=== PATIENT | female | born 1945 | race Caucasian/White ===

== ENCOUNTER → 2019-08-05 10:18 | Outpatient (BNVA) | payer MEDICARE, OTHER, SELFPAY | PROVIDERS: Family Provider Nurse Practitioner; PCP Nurse Practitioner; Visit Provider Nurse Practitioner | DX: I10 Essential (primary) hypertension (principal); D50.9 Iron deficiency anemia, unspecified; E55.9 Vitamin D deficiency, unspecified | CPT/HCPCS: 80053; 81003; 82306; 83540; 85025 ==

== ENCOUNTER → 2020-02-04 08:21 | Outpatient (BNVA) | payer MEDICARE, OTHER, SELFPAY | PROVIDERS: Family Provider Nurse Practitioner; PCP Nurse Practitioner; Visit Provider Nurse Practitioner | DX: E61.1 Iron deficiency (principal); E78.2 Mixed hyperlipidemia; E53.8 Deficiency of other specified B group vitamins; I10 Essential (primary) hypertension; E55.9 Vitamin D deficiency, unspecified | CPT/HCPCS: 80053; 80061; 81000; 82607; 83540; 85025 ==

== ENCOUNTER → 2020-02-06 09:01 | Outpatient (BNVA) | payer MEDICARE, OTHER, SELFPAY | PROVIDERS: Family Provider Nurse Practitioner; PCP Nurse Practitioner; Visit Provider Nurse Practitioner | DX: R30.0 Dysuria (principal); J44.9 Chronic obstructive pulmonary disease, unspecified; I10 Essential (primary) hypertension | CPT/HCPCS: 81000 ==

== ENCOUNTER → 2020-08-18 08:59 | Outpatient (BNVA) | payer MEDICARE, OTHER, SELFPAY | PROVIDERS: Family Provider Nurse Practitioner; PCP Nurse Practitioner; Visit Provider Nurse Practitioner | DX: E78.2 Mixed hyperlipidemia (principal); J44.9 Chronic obstructive pulmonary disease, unspecified; I10 Essential (primary) hypertension | CPT/HCPCS: 80053; 80061; 84443 ==

== ENCOUNTER → 2021-02-04 08:44 | Outpatient (BNVA) | payer MEDICARE, OTHER, SELFPAY | PROVIDERS: Family Provider Nurse Practitioner; PCP Nurse Practitioner; Visit Provider Nurse Practitioner | DX: E55.9 Vitamin D deficiency, unspecified (principal); E53.8 Deficiency of other specified B group vitamins; E78.2 Mixed hyperlipidemia; I10 Essential (primary) hypertension | CPT/HCPCS: 80053; 80061; 82306; 82607 ==

== ENCOUNTER → 2021-08-19 08:55 | Outpatient (BNVA) | payer MEDICARE, OTHER, SELFPAY | PROVIDERS: Family Provider Nurse Practitioner; PCP Nurse Practitioner; Visit Provider Nurse Practitioner | DX: E61.1 Iron deficiency (principal); I10 Essential (primary) hypertension; J44.9 Chronic obstructive pulmonary disease, unspecified | CPT/HCPCS: 80053; 80061; 84443; 85025 ==

== ENCOUNTER → 2022-01-25 14:46 | Outpatient (BNVA) | payer MEDICARE, OTHER, SELFPAY | PROVIDERS: Family Provider Nurse Practitioner; PCP Nurse Practitioner; Visit Provider Nurse Practitioner Family | DX: L02.419 Cutaneous abscess of limb, unspecified (principal); L72.0 Epidermal cyst; L08.9 Local infection of the skin and subcutaneous tissue, unspecified | CPT/HCPCS: 87070 ==

== ENCOUNTER → 2022-02-10 08:17 | Outpatient (BNVA) | payer MEDICARE, OTHER, SELFPAY | PROVIDERS: Family Provider Nurse Practitioner; PCP Nurse Practitioner; Visit Provider Nurse Practitioner | DX: I10 Essential (primary) hypertension (principal); E53.8 Deficiency of other specified B group vitamins | CPT/HCPCS: 80053; 80061; 82607; 85025 ==

== ENCOUNTER → 2022-08-04 08:03 | Outpatient (BNVA) | payer MEDICARE, OTHER, SELFPAY | PROVIDERS: Family Provider Nurse Practitioner; PCP Nurse Practitioner; Visit Provider Nurse Practitioner | DX: E53.8 Deficiency of other specified B group vitamins (principal); E55.9 Vitamin D deficiency, unspecified; E61.1 Iron deficiency; I10 Essential (primary) hypertension; Z79.899 Other long term (current) drug therapy | CPT/HCPCS: 80053; 80061; 81003; 82306; 82607; 83540; 84443; 85025; 87086 ==

== ENCOUNTER 2022-08-30 14:32 | Outpatient (CLI) | payer MEDICARE, OTHER, SELFPAY ==
[2022-08-30] MEDS: iohexol 350 mg/mL 500 mL Btl (per mL) PO (15:46)
--- NOTE | 2022-08-30 16:00 | CT_ITS ---
WS: [id number] CT CHEST, ABDOMEN AND PELVIS WITH CONTRAST. HISTORY: J44.9 - Chronic obstructive pulmonary disease, unspecified, vaginal bleeding for several mon ths. TECHNIQUE: Contiguous 5 mm axial imaging performed through the chest, abdomen and pelvis with IV cont rast, oral contrast has been provided. Coronal and sagittal reformats chest. Coronal and sagittal ref ormats through the abdomen and pelvis. All CT scans at [facility] use at least one of these d ose optimization techniques: automated exposure control; mA and/or kV adjustment per patient size (in cludes targeted exams where dose is matched to clinical indication); or iterative reconstruction. CONTRAST: Omnipaque 350; 100 mL IV. DLP: 806.33 mGy.cm COMPARISON: 04/11/2019 and 10/09/[address]: Moderate hyperexpansion and chronic emphysema. Interstitial thickening. Mild tree-in-bud ai rspace disease anterior RIGHT upper lobe. No mass or nodule. There are a few scattered micronodules. No pleural or pericardial effusion. Normal heart size. No adenopathy. Mild atherosclerosis aorta. Lar ge hiatal hernia. Mild anterior wedging of T10. Abdomen CT: Low-attenuation 5 mm focus in the RIGHT lobe of the liver. 2 small to characterize but li ebonie a cyst. No solid mass. Contracted gallbladder. No bile duct dilatation. Normal pancreas. Normal spleen. 3.2 cm RIGHT adrenal mass similar to the prior study from 10/09/2018. Small low-attenuation le kirit measuring 1.0 cm and the LEFT adrenal gland. Mild atherosclerosis aorta. Kidneys remain normal size. RIGHT renal cysts, largest measures 2.7 cm and is unchanged. Normally distended stomach. No small bowel obstruction. Marked diffuse constipation and fecal retenti on. Normal appendix. No ascites or adenopathy. Pelvic CT: Well-distended urinary bladder. Bladder wall thickening and nodularity in several regions highly suspicious for bladder neoplasm. Most concerning bladder wall lesions are on the RIGHT in the lateral and more anterior superior aspect of the bladder measuring up to 6 mm. Additional more subtle areas of nodularity and thickening on the LEFT. No ascites or adenopathy. Atrophic uterus. CT/CT chest abdpel w/*[id number] IMPRESSION: 1. Bladder wall lesions with mild enhancement. The most significant measures u p to 6 mm in the RIGHT lateral bladder wall. Highly suspicious for uroepithelia l lesions. Recommend follow-up with urology for cystoscopy. 2. Large hiatal hernia. 3. Moderate emphysema. 4. RIGHT adrenal mass is stable since 2019. Most consistent with a benign jose isaiah. 5. RIGHT renal cysts.
[2022-08-30] MEDS: iohexol 350 mg/mL 500 mL Btl (per mL) IV (16:14)
== END 2022-08-30 14:33 | disposition home or self-care (01) ==
LOC: RAD 14:37
PROVIDERS: Family Provider Nurse Practitioner; PCP Nurse Practitioner; Visit Provider Nurse Practitioner
DX: J44.9 Chronic obstructive pulmonary disease, unspecified (principal); K44.9 Diaphragmatic hernia without obstruction or gangrene; N28.1 Cyst of kidney, acquired; I70.0 Atherosclerosis of aorta
CPT/HCPCS: 71260; 74177; 74178; Q9967

== ENCOUNTER → 2023-02-09 11:15 | Outpatient (BNVA) | payer MEDICARE, OTHER, SELFPAY | PROVIDERS: Family Provider Nurse Practitioner; PCP Nurse Practitioner; Visit Provider Nurse Practitioner | DX: E61.1 Iron deficiency (principal); E53.8 Deficiency of other specified B group vitamins; E55.9 Vitamin D deficiency, unspecified; J44.9 Chronic obstructive pulmonary disease, unspecified; I10 Essential (primary) hypertension; Z79.899 Other long term (current) drug therapy | CPT/HCPCS: 80053; 81003; 82306; 82607; 83540; 85025; 87086 ==

== ENCOUNTER 2023-03-13 08:30 | Outpatient (CLI) | payer MEDICARE, OTHER, SELFPAY ==
--- NOTE | 2023-03-13 09:00 | US_ITS ---
WS: [id number] URINARY BLADDER ULTRASOUND HISTORY: N32.9 - Bladder disorder, unspecified COMPARISON: None available. Only minimal distention of the urinary bladder. There is mild diffuse bladder wall thickening. There are focal areas of very mild wall thickening which are of similar echogenicity as the diffuse wall th ickening. No color Doppler was submitted. There is a tiny calcification in the wall of the LEFT urinary bladder. IMPRESSION: 1. Mild diffuse bladder wall thickening may be due to under distention. A discrete mass is not identi fied. Focal bladder wall asymmetric thickening noted on the recent CT needs to be further evaluated. Recommend cystoscopy.
== END 2023-03-13 08:31 | disposition home or self-care (01) ==
PROVIDERS: PCP Nurse Practitioner; Visit Provider Nurse Practitioner
DX: N32.9 Bladder disorder, unspecified (principal)
CPT/HCPCS: 76857

== ENCOUNTER 2023-05-30 08:04 | Outpatient (CLI) | payer MEDICARE, OTHER, SELFPAY ==
--- NOTE | 2023-05-30 08:30 | CT_ITS ---
WS: [id number] CT ABDOMEN PELVIS TECHNIQUE: Noncontrast CT of the abdomen and contrast-enhanced CT of the abdomen and pelvis with nicole nal and sagittal reformatted images with delayed imaging. CLINICAL INFORMATION: N32.9 - Bladder disorder, unspecified COMPARISON: CT 08/30/2022 DLP: 1049.[address] scans at [facility] use at least one of these dose optimization techniques: automated e xposure control; mA and/or kV adjustment per patient size (includes targeted exams where dose is matc hed to clinical indication); or iterative reconstruction. FINDINGS: Bladder is decompressed on the initial imaging. Some filling of the bladder on the delayed imaging. P reviously described suspicious bladder wall polypoid lesions appear persistent. Findings suspicious f or TCC and recommend further evaluation with cystoscopy. Large esophageal hiatal hernia. Stable RIGHT adrenal lesion likely adenoma. RIGHT adrenal lesion hayes ures approximately 3.2 x 2.8 cm. Normal renal parenchymal enhancement. No hydronephrosis. Incidental simple renal cysts largest on the RIGHT measuring 2.8 x 2.2 cm. No obstructing renal or ureteral calc sondra. No visualized filling defects in the ureters. Retroverted uterus. Mild diffuse fatty infiltratio n of the liver. Tiny hepatic cyst. Normal portal vein and splenic vein. Stable spleen. Lung bases are well aerated. Normal caliber abdominal aorta. Normal appendix in the RIGHT lower quadrant. Gallbladder is contracte d. IMPRESSION: 1. Previously described lobulated polypoid lesions involving the bladder suspicious for TCC. Recomme nd further evaluation with cystoscopy. These are also visualized on prior CT 08/30/2022. Bladder is de compressed today. 2. No filling defects in the ureters or renal pelvis bilaterally. 3. Incidental simple renal cysts bilaterally. 4. Large esophageal hiatal hernia. 5. Stable RIGHT adrenal lesion measuring 2.8 x 3.2 cm likely adenoma stable since 2019. 6. No other acute findings.
[2023-05-30 08:33] LABS: Blood Urea Nitrogen 20 mg/dL (8-23)
[2023-05-30] MEDS: iohexol 350 mg/mL 500 mL Btl (per mL) IV (08:46)
== END 2023-05-30 08:05 | disposition home or self-care (01) ==
PROVIDERS: PCP Nurse Practitioner; Visit Provider Nurse Practitioner
DX: N32.9 Bladder disorder, unspecified (principal)
CPT/HCPCS: 74178; 82565; 84520; Q9967

== ENCOUNTER 2023-06-09 11:15 | Emergency (ER) | payer MEDICARE, OTHER, SELFPAY ==
[2023-06-09 11:23] VITALS: BP 79/53; PULSE 80; RESP 16; TEMP 36.6; O2SAT 98; BMI 23.8
--- NOTE | 2023-06-09 12:25 | US_ITS ---
WS: [id number] ULTRASOUND RENAL TECHNIQUE: Ultrasound examination of both kidneys. CLINICAL INFORMATION: hematuria COMPARISON: None. FINDINGS: Incidental simple RIGHT renal cysts largest measuring 1.7 x 1.7 cm. RIGHT: Increased renal echogenicity bilaterally compatible with medical renal disease Right kidney is normal in size Echogenicity: Increased Cortical thickness: 1.0 cm; Normal. Hydronephrosis: None. Perinephric fluid: None. Right kidney measures: 9.7 cm x 4.8 cm x 4.7 cm. LEFT: Left kidney is normal in size Echogenicity: Increased Cortical thickness: 1.0 cm; Normal. Hydronephrosis: None. Perinephric fluid: None. Left kidney measures: 8.3 cm x 4.3 cm x 4.8 cm. Normal visualized aorta. Diffuse bladder wall thickening with numerous polypoid lesions involving the bladder suspicious for T CC also seen on the recent CT 05/30/2023. Recommend further evaluation with cystoscopy. IMPRESSION: 1. Echogenic kidneys bilaterally compatible with medical renal disease. 2. No hydronephrosis. 3. Incidental simple RIGHT renal cyst. 4. Diffuse bladder wall thickening with polyploid lesions involving the bladder suspicious for TCC a lso seen on the recent CT 05/30/2023. Recommend further evaluation with cystoscopy.
--- NOTE | 2023-06-09 12:26 | W.ED.FEMALGU ---
HPI - Female Genitourinary General: Chief complaint: Urogenital-Female Stated complaint: Vag bleeding, trouble urinating, abd pain Time Seen by Provider: 06/09/23 12:09 Source: patient and family Mode of arrival: ambulatory Limitations: no limitations History of Present Illness: This patient presents to our emergency department today because of concerns about hematuria associated with pelvic discomfort urinary frequency and voiding small amounts. She states her symptoms began yesterday with passing clots in her urine and the need to empty her bladder frequently but she did not feel she completed emptying of her bladder. She states she is left with recurrent symptoms throughout the night of having to empty her bladder. She denies any fevers or chills. She does have a history suggestive that she have a bladder tumor on a CT that was performed last fall and is scheduled to see urology in [place] in the next 2 weeks. She has not had the symptoms previously. She is an ex-smoker having quit smoking approximately 25 years ago. She has had a tubal ligation but no other abdominal or pelvic surgeries. She denies any vaginal bleeding bleeding per her rectum etc. She takes 81 mg of aspirin daily. She has a history of COPD as well as hypertension and hypercholesterolemia. She states that she was a little lightheaded today but she attributes that to not sleeping well last night. She states she has drank a little bit of fluids today but has not eaten anything. He denies any other symptoms currently. MD elicited complaint: dysuria Associated symptoms: Deny abdominal pain, headache(s), nausea or syncope Review of Systems Const: Denies: fever(s) or chills ENMT: Denies: throat pain, odynophagia or nasal discharge Card: Denies: chest pain, syncope or pre-syncope Resp: Denies: productive cough or non-productive cough GI: Denies: abdominal pain, nausea, vomiting, diarrhea, hematochezia or melena : Reports: urinary frequency, urinary urgency, hematuria and pelvic pain Musc: Denies: neck pain, extremity pain or extremity swelling Skin/Breast: Denies: rash or pruritus Neuro: Denies: headache(s), numbness in extremities or weakness in extremities Epi/Lymph: Denies: easy bruising or easy bleeding PFS ED PFSH: Medical History Lesion of urinary bladder Dietary iron deficiency Leaky heart valve seen on echo Essential (primary) hypertension Mixed hyperlipidemia Vitamin B12 deficiency Vitamin D deficiency COPD, moderate Surgical History Status post hysteroscopic polypectomy 2019 History of tubal ligation 1983 History of oral surgery Gum graft 1998 History of dilation and curettage 1989 Status post cataract surgery 2011 Family History Mother No problems noted. Father Cancer Sister Cancer Other Heart disease Hypertension Social History Smoking and tobacco/nicotine status: never used tobacco/nicotine Second hand smoke exposure: No Alcohol intake: never Substance/Drug Use: never Caregiver/support person: No Lives independently: Yes Household members: spouse Housing: House Marital status: Number of children: 2 Current occupational status: retired Do you think of yourself as: Straight/Heterosexual Current gender identity: Female Physical Exam Narrative: EXAM NARRATIVE: She is alert answers questions readily in a goal-directed fashion. She appears to be in no acute distress. Const: COMMON NORMALS: no acute distress, average body habitus, patient oriented x3, healthy appearing and alert GENERAL APPEARANCE: cooperative and comfortable HENMT: COMMON NORMALS: normocephalic, Normal nasal mucous membranes and turbinates present and moist oral mucous membranes HEAD & SCALP: normocephalic NOSE: Normal nasal mucous membranes and turbinates present Eye: COMMON NORMALS: Equal, round and reactive pupils present and EOMs intact bilaterally PUPIL: Yes Equal, round and reactive pupils present Neck/C-Spine: COMMON NORMALS: full ROM, no meningeal signs, no JVD and Thyroid normal THYROID: Thyroid normal Chest: COMMONS NORMALS: normal inspection of the chest Resp: COMMON NORMALS: normal respiratory effort, No retractions, No use of accessory muscles and clear to auscultation bilaterally EFFORT & INSPECTION: Yes able to speak in complete sentences AUSCULTATION: clear to auscultation bilaterally Cardio: COMMON NORMALS: no JVD : COMMON NORMALS: Yes no CVA tenderness BLADDER/KIDNEY EXAM: Yes no CVA tenderness Back/Pelvis: COMMON NORMALS: no CVA tenderness, thoracic and lumbar spine normal to inspection, no thoracic nor lumbar tenderness, thoraco-lumbar ROM normal and straight leg raise negative bilaterally Extremity: COMMON NORMALS: normal to inspection, full ROM, capillary refill normal, no calf tenderness and no pedal edema Neuro: COMMON NORMALS: patient oriented x3, moves all extremities, no focal motor deficits and no sensory deficits noted SENSORIUM/ORIENTATION: Yes alert MENINGEAL SIGNS: Yes no meningeal signs Psych: COMMON NORMALS: mental status grossly normal Skin: COMMON NORMALS: no rashes or lesions noted, no wounds, turgor normal and no petechiae GENERAL SKIN EXAM: no rashes or lesions noted and turgor normal Course Reevaluation(s): Reevaluation #1: Patient did receive IV fluids, vital signs were reviewed and very reassuring at this time. Discussed current findings and recommendations of care with patient as well as the entire family present now. All questions were answered. Currently clinically stable to be discharged for outpatient therapy with urology follow-up. Time: 14:36 Vital Signs: Vital signs: Vital Signs Temperature 97.9 F 06/09/23 11:23 Pulse Rate 80 06/09/23 11:23 Respiratory Rate 16 06/09/23 11:23 Blood Pressure 79/53 06/09/23 11:23 Pulse Oximetry 98 06/09/23 11:23 Oxygen Delivery Me thod Room Air 06/09/23 11:23 MDM - Female Medical Decision Making This patient presented to emergency department because of increased urinary frequency, urgency, blood clots over the last 24 hours. He denies any fevers or chills and has been able to drink and eat normally. She has no other history of bleeding dyscrasias and does not take any antiplatelet or anticoagulant medications other than 81 mg of aspirin. Her clinical examination was reassuring. Initial blood pressure was unclear as if it was accurate or not but subsequent blood pressures were quite acceptable and did not reveal any evidence of hypotension and she did not have any other findings that suggested possible ongoing issues with hypotension, sepsis etc. Urinalysis was revealing in that she had significant bacteria, hematuria and pyuria suggestive of acute cystitis. A ultrasound was obtained to ensure that there is no obstructive uropathy at play given her hematuria as well as her known history of recently discovered possible intravesicular mass consistent with possible bladder tumor. That was reassuring and she was clinically stable. All current findings were reviewed with the patient. She is being started on antibiotics as well as antispasmodics return precautions were also reviewed in detail. She has urology follow-up in [place] in 2 weeks for cystoscopy. No evidence at this time of other ongoing emergency medical condition that would warrant additional stabilization and/or admission. Medical Records I reviewed the patient's medical records. CT scan showing suspicious findings of possible bladder tumor. Lab Data I reviewed the patient's lab results. 06/09/23 13:18 06/09/23 13:18 Laboratory Results WBC 9.42 10^3/uL (3.29-11.43) 06/09/23 13:18 RBC 4.19 10^6/uL (3.85-5.65) 06/09/23 13:18 Hgb 12.40 g/dL (11.27-16.99) 06/09/23 13:18 Hct 39.1 % (36-47) 06/09/23 13:18 MCV 93.3 fl (85-98) 06/09/23 13:18 MCH 29.6 pg (27-33) 06/09/23 13:18 MCHC 31.7 g/dL (30-55) 06/09/23 13:18 RDW 14.7 % (12.1-15.1) 06/09/23 13:18 Plt Count 332 10^3/cmm (157-399) 06/09/23 13:18 MPV 10.3 fL (7.4-10.4) 06/09/23 13:18 Neut % (Auto) 88.7 % 06/09/23 13:18 Lymph % (Auto) 7.2 % 06/09/23 13:18 [place] % (Auto) 3.8 % 06/09/23 13:18 Eos % (Auto) 0.0 % 06/09/23 13:18 Baso % (Auto) 0.1 % 06/09/23 13:18 Neut # (Auto) 8.35 10^3/uL (1.8-7.7) H 06/09/23 13:18 Lymph # (Auto) 0.7 10^3/uL (0.8-4.8) L 06/09/23 13:18 [place] # (Auto) 0.4 10^3/uL (0.2-0.9) 06/09/23 13:18 Eos # (Auto) 0.0 10^3/uL (0.0-0.8) 06/09/23 13:18 Baso # (Auto) 0.0 10^3/uL (0.0-0.1) 06/09/23 13:18 Nucleated RBC % (auto) 0 % 06/09/23 13:18 Nucleated RBCs # 0.0 /100WBC 06/09/23 13:18 PT 13.40 SECONDS (12.1-14.9) 06/09/23 13:18 INR 0.99 (0.8-1.2) 06/09/23 13:18 Sodium 141 mmol/L (136-145) 06/09/23 13:18 Potassium 4.5 mmol/L (3.5-5.1) 06/09/23 13:18 Chloride 105 mmol/L (98-107) 06/09/23 13:18 Carbon Dioxide 21 mmol/L (22-29) L 06/09/23 13:18 Anion Gap 19.5 (5-19) H 06/09/23 13:18 BUN 31 mg/dL (8-23) H 06/09/23 13:18 Creatinine 1.3 mg/dL (0.5-0.9) H 06/09/23 13:18 GFR Calculation Not Reportable 06/09/23 13:18 Glucose 111 mg/dL (65-115) 06/09/23 13:18 Calculated Osmolality 299 mOsm/kg (285-295) H 06/09/23 13:18 Calcium 10.1 mg/dL (8.5-10.5) 06/09/23 13:18 Urine Color Red (Yellow) A 06/09/23 12:58 Urine Appearance Bloody (CLEAR) A 06/09/23 12:58 Urine pH 6.5 (5-7) 06/09/23 12:58 Ur Specific [place] 1.015 (1.005-1.030) 06/09/23 12:58 Urine Protein 3+ (Negative) H 06/09/23 12:58 Urine Glucose (UA) Norm (Normal) 06/09/23 12:58 Urine Ketones 1+ (Negative) H 06/09/23 12:58 Urine Blood 3+ (Negative) H 06/09/23 12:58 Urine Nitrate Not tested (Negative) A 06/09/23 12:58 Urine Bilirubin Neg (Negative) 06/09/23 12:58 Urine Urobilinogen Neg mg/dL (Negative) 06/09/23 12:58 Ur Leukocyte Esterase Trace (Negative) H 06/09/23 12:58 Urine RBC Too numerous to cnt /hpf (0-2) H 06/09/23 12:58 Urine WBC >100 /hpf (0-5) H 06/09/23 12:58 Ur Squamous Epith Cells 0-4 /hpf (0-5) H 06/09/23 12:58 Amorphous Sediment Not Reportable 06/09/23 12:58 Urine Bacteria 1+ /hpf (NONE) H 06/09/23 12:58 Hyaline Casts 0-4 /lpf H 06/09/23 12:58 Urine Mucus Trace /hpf 06/09/23 12:58 All radiology interpretation(s) finalized by discharge Discharge Plan Discharge Patient Disposition: Home Clinical Impression: Acute hemorrhagic cystitis Urinary tract infection Qualifiers: Urinary tract infection type: acute cystitis Hematuria presence: with hematuria Qualified Code(s): N30.01 - Acute cystitis with hematuria Condition: Stable Prescriptions: New cephalexin 500 mg capsule 500 mg PO TID 7 Days Qty: 21 0RF Levsin 0.125 mg tablet 0.125 mg PO QID PRN (Reason: bladder spasms) Qty: 14 0RF No Action aspirin [Adult Low Dose Aspirin] 81 mg tablet,delayed release (DR/EC) 81 mg PO DAILY ferrous gluconate 324 mg (37.5 mg iron) tablet 324 mg PO DAILY cholecalciferol (vitamin D3) 125 mcg (5,000 unit) capsule 5,000 unit PO DAILY rosuvastatin 20 mg tablet 20 mg PO DAILY albuterol sulfate [Ventolin HFA] 90 mcg/actuation HFA aerosol inhaler 2 inh INHALATION Q4H PRN (Reason: shortness of breath or wheezing) Qty: 18 5RF Trelegy Ellipta 100-62.5-25 mcg blister with device 1 inh INHALATION Q24H Qty: 60 5RF metoprolol succinate 25 mg tablet extended release 24 hr 25 mg PO DAILY Qty: 90 1RF valsartan [Diovan] 40 mg tablet 40 mg PO DAILY Qty: 90 1RF Flomax 0.4 mg capsule 0.4 mg PO QPM acetaminophen 500 mg Tablet 500 mg PO Q6H PRN (Reason: Pain) Refresh 1 % Drops, Liquid Gel 2 drp OPHTHALMIC (EYE) BID PRN (Reason: Dry Eyes) Discharge Orders: Discharge ED (Routine); Ordered 06/09/23 Ordered By: Akira Doshi Referrals: Sandy Mckeon, [employer] [Primary Care Provider] - Discharge Diet: Usual diet Discharge Activity: Increase activity as tolerated Patient Instructions: Opioid Safety, Pain Management Activity Restrictions/Additional Instructions: As we discussed it appears that you have an infection in your bladder and lower urinary tract infection which is causing irritation and bleeding and clotting. Still have the other findings in your bladder today on the ultrasound which you should still follow-up with urology in 2 weeks as planned. We have prescribed an antibiotic as well as some medicine to help with the irritation of your bladder. You should take those until they are completely gone. You should drink at least 2 quarts of water daily. If you develop fevers, increasing discomfort or pain, unable to tolerate the medicines or other concerning symptoms return to this or the nearest emergency department for reevaluation. Coding Level of Care Code ED Aviation Manager for Zoë Dalton
[2023-06-09 13:38] LABS: Basophils % 0.1 %; Hematocrit 39.1 % (36-47); Lymphocytes # 0.7 10^3/uL (0.8-4.8); Lymphocytes % 7.2 %; Mean Corpuscular HGB Conc 31.7 g/dL (30-55); Mean Corpuscular Hemoglobin 29.6 pg (27-33); Mean Corpuscular Volume 93.3 fl (85-98); Mean Platelet Volume 10.3 fL (7.4-10.4); Monocytes # 0.4 10^3/uL (0.2-0.9); Monocytes % 3.8 %; Neutrophils # 8.35 10^3/uL (1.8-7.7); Neutrophils % 88.7 %; Nucleated Red Blood Cells % 0 %; Platelet Count 332 10^3/cmm (157-399); Red Blood Count 4.19 10^6/uL (3.85-5.65); Red Cell Distribution Width 14.7 % (12.1-15.1); White Blood Count 9.42 10^3/uL (3.29-11.43)
[2023-06-09 13:43] LABS: INR 0.99 (0.8-1.2)
[2023-06-09 13:47] LABS: Blood Urine 3+ (Negative); Glucose Urine UA Norm (Normal); Ketones Urine 1+ (Negative); Nitrate Urine Not Tested (Negative); Protein Urine 3+ (Negative); Specific Gravity, Urine 1.015 (1.005-1.030); Urine Appearance Bloody (CLEAR); Urine Color Red (Yellow); pH Urine 6.5 (5-7)
[2023-06-09 13:48] LABS: Add Urine Microscopic? YES; Bacteria Urine 1+ /hpf; Bilirubin Urine Neg (Negative); Hyaline Casts Urine 0-4 /lpf; Leukocyte Esterase Urine Trace (Negative); Mucus Urine TRACE /hpf; RBC Urine TOO NUMEROUS TO CNT /hpf (0-2); Squamous Epithelial Cell Urine 0-4 /hpf (0-5); Urobilinogen Urine Neg (Negative); WBC Urine >100 /hpf (0-5)
[2023-06-09 13:48] LABS: Blood Urea Nitrogen 31 mg/dL (8-23); Calcium 10.1 mg/dL (8.5-10.5); Carbon Dioxide 21 mmol/L (22-29); Chloride 105 mmol/L (98-107); Glucose 111 mg/dL (65-115); Osmolality Calculated 299 mOsm/kg (285-295); Sodium 141 mmol/L (136-145)
[2023-06-09 13:49] LABS: Add Urine Culture? Yes
[2023-06-09 13:50] LABS: Anion Gap 19.5 (5-19); Potassium 4.5 mmol/L (3.5-5.1)
== END 2023-06-09 14:55 | disposition home or self-care (01) ==
PROVIDERS: Emergency Provider Emergency Medicine; PCP Nurse Practitioner
DX: N30.01 Acute cystitis with hematuria (principal); Z79.82 Long term (current) use of aspirin; I10 Essential (primary) hypertension; E78.2 Mixed hyperlipidemia; J44.9 Chronic obstructive pulmonary disease, unspecified
CPT/HCPCS: 76770; 80048; 81001; 85025; 85610; 87086; 99284

== ENCOUNTER 2023-09-14 10:24 | Oncology outpatient (recurring) (ONCR) | payer MEDICARE, OTHER, SELFPAY ==
[2023-09-14 11:57] LABS: Basophils % 0.3 %; Eosinophils # 0.1 10^3/uL (0.0-0.8); Eosinophils % 0.8 %; Lymphocytes # 1.1 10^3/uL (0.8-4.8); Lymphocytes % 14.5 %; Mean Corpuscular HGB Conc 30.4 g/dL (30-55); Mean Corpuscular Hemoglobin 27.7 pg (27-33); Mean Corpuscular Volume 91.1 fl (85-98); Monocytes # 0.7 10^3/uL (0.2-0.9); Monocytes % 8.8 %; Neutrophils # 5.72 10^3/uL (1.8-7.7); Neutrophils % 75.2 %; Nucleated Red Blood Cells % 0 %; Platelet Count 323 10^3/cmm (157-399); Red Blood Count 5.16 10^6/uL (3.85-5.65); Red Cell Distribution Width 15.7 % (12.1-15.1)
[2023-09-14 12:17] LABS: Alanine Aminotransferase 11 U/L (0-33); Albumin Level 3.7 g/dL (3.5-5.2); Alkaline Phosphatase 81 U/L (35-105); Anion Gap 15.1 (5-19); Aspartate Amino Transferase 15 U/L (0-32); Blood Urea Nitrogen 18 mg/dL (8-23); Calcium 9.5 mg/dL (8.5-10.5); Carbon Dioxide 24 mmol/L (22-29); Chloride 107 mmol/L (98-107); Creatinine Clr Calc Pharmacy 41.7642; Globulin 3.4 g/dL (1.3-4.6); Glucose 91 mg/dL (65-115); Osmolality Calculated 295 mOsm/kg (285-295); Potassium 4.1 mmol/L (3.5-5.1); Sodium 142 mmol/L (136-145); Total Bilirubin 0.3 mg/dL (0.15-1.2); Total Protein 7.1 g/dL (6.6-8.7)
[2023-09-14 12:39] LABS: Hepatitis A Antibody IgM Non-Reactive (Nonreactive); Hepatitis B Core AB, Total Non-Reactive (Nonreactive); Hepatitis B Surface Antigen Non-Reactive (Nonreactive); Hepatitis C Virus Antibody Non-Reactive (Nonreactive)
== END 2023-09-17 23:59 | disposition home or self-care (01) ==
PROVIDERS: Internal Medicine; Absent Provider Internal Medicine Medical Oncology; PCP Nurse Practitioner; Visit Provider Urology
DX: C67.9 Malignant neoplasm of bladder, unspecified (principal); N28.1 Cyst of kidney, acquired; J44.9 Chronic obstructive pulmonary disease, unspecified; Z79.899 Other long term (current) drug therapy
CPT/HCPCS: 36415; 80053; 81001; 85025; 86705; 86706; 86709; 86803; 87086; 87340; 99204

== ENCOUNTER 2023-10-05 08:15 | Oncology outpatient (recurring) (ONCR) | payer MEDICARE, OTHER, SELFPAY ==
--- NOTE | 2023-09-18 11:25 | N.ONRAD NP_ITS ---
Radiation Oncology New Patient Visit Patient: Denia Mast MR#: [id number] : 1945 Age: 78 Sex: Female Dictated by: Dr. Yris Alvarez Date of Service: 09/18/2023 Referring Physician(s) : Dr. Jason Howell Diagnosis: High-grade urothelial carcinoma of the bladder staging pending PET scan Radiotherapy to date: Summary > No prior radiation therapy. Chief Complaint / History of Present Illness: Patient is a 78-year-old lady who has had hematuria for approximately a year. She actually had a CT scan in August 2022 which showed no abnormalities. She continued to have hematuria and frequency as well occasional pain. She was however in the process of caring for her who had pancreatic cancer. He has subsequently succumbed to his disease. She had additional scans in February and again in May. On August 28, 2023 she underwent surgical removal of several bladder tumors. One from the dome, right and left sidewalls. These measured anywhere from 3-1/2 to 2-1/2 cm in size and were ulcerated with raised edges. Pathologically they were high-grade diffuse urothelial carcinoma. Surgical resection was undertaken and cauterization after. She is here today to discuss the treatment options. Current Medications: Tylenol as needed, albuterol, aspirin daily, carboxymethylcellulose eyedrops, vitamin D, iron, Trelegy inhaler, metoprolol, rosuvastatin, valsartan. Allergies: Bactrim/sulfa Medical History: COPD, hypercholesterolemia, hypertension, hiatal hernia, right adrenal adenoma, right renal cyst, history of low vitamin D. No history of collagen vascular disease. No previous radiation therapy. Surgical History: D&C, tubal ligation, cataract surgery Family History: Her father and sister both had cancer Social History: She is a new . She currently lives alone. Current Complaints / Review of Systems: . She has had some intermittent hematuria and clots Vital Signs: Performed on 09/18/2023 10:39 AM BMI - 22.424 kg/m2, Height - 62 in, Weight - 122.6 lbs, Temperature - 97.0 f, Pulse - 69 /min, Respiration - 16 /min, O2 Sat - 92 % (low), Pain - 0, Fatigue - 3 and BP - 158/ 68 mm(hg)(high/). Physical Exam: General: Patient is alone today. She is in no apparent distress. HEENT: Normocephalic atraumatic. Pupils are equal, sclera clear, extraocular muscles intact Cardiovascular: Regular rate and rhythm Pulmonary: Respiratory rate is regular nonlabored Abdomen: Patient has minimal adipose tissue with a flat abdomen. Extremities: Without clubbing cyanosis or edema Skin: Warm and dry Neurological: Alert and orient x 3. Gait and speech within normal limits Psych: Affect appropriate for current situation Performance Status: 100 Pathology: High-grade urothelial carcinoma Lab: Imaging: See HPI Impression: Multifocal high-grade urothelial carcinoma status post TUR Plan: She is currently scheduled to have a PET scan tomorrow. This will allow us to complete her staging evaluation. Urology has recommended that she visit with a urological surgeon in [place]. She is gathering information at this point to try and make her decision. She understands that her greatest risk will be the development of distant metastasis which would most likely be lung metastasis. We discussed bladder conserving therapy and her age. I reviewed the simulation process. We discussed the daily treatment regiment. We reviewed the risks and side effects both acute and long-term. She verbalized understanding of these. She is leaning towards proceeding with bladder conserving therapy with radiation and chemotherapy. At this point we will contact her with her PET scan results when those are done tomorrow. She will be back next week to discuss chemotherapy with Dr. Parker. She does have a wedding in 4 weeks. I will tentatively schedule her for a simulation the first week in October. At this point she was concerned about possibly having a bladder infection today. Will go ahead and check a UA. I have asked her to call if she should have any additional questions I be happy to see her back next week when she sees Dr. Parker. Signed by: 09/18/2023 11:23:59 AM <<Signature on File>> Time spent with patient:60 CPT Code: CPT Code:
[2023-09-18 13:15] LABS: Add Urine Microscopic? YES; Bilirubin Urine 1+ (Negative); Blood Urine 3+ (Negative); Glucose Urine UA Norm (Normal); Ketones Urine Negative (Negative); Leukocyte Esterase Urine 2+ (Negative); Nitrate Urine Negative (Negative); Protein Urine Trace (Negative); Urine Appearance Hazy (CLEAR); Urine Color Yellow (Yellow); Urobilinogen Urine Norm (Negative); pH Urine 5 (5-7)
[2023-09-18 13:16] LABS: Amorphous Sediment Urine 2+ /hpf; Bacteria Urine 1+ /hpf; Calcium Oxalate Crystals Urine RARE /hpf; RBC Urine 15-25 /hpf (0-2); Squamous Epithelial Cell Urine 0-4 /hpf (0-5); WBC Urine 55-80 /hpf (0-5)
[2023-09-18 13:17] LABS: Add Urine Culture? Yes
--- NOTE | 2023-09-26 11:30 | PETR_ITS ---
PROCEDURE INFORMATION: Exam: PET/CT Skull Base to Mid-thigh Exam date and time: 09/26/2023 12:28 PM Age: 78 years old Clinical indication: Condition or disease; Primary cancer: Neoplasm bladder; Initial oncological staging assessment; Prior surgery; Surgery date: 6+ months; Surgery type: Tubal; Additional info: Initial scan LABS AND CLINICAL REPORTS: Glucose: 81 mg/dl Treatment strategy for malignancy (PET staging): Initial Staging (PI) TECHNIQUE: Imaging protocol: Following at least four-hour fasting and following the injection of radiopharmaceutical, low dose CT images were obtained. Then, PET images were obtained. Attenuation corrected images were constructed using the CT scan. Fused images of PET and CT were reviewed. The standardized uptake values (SUV) reported below are maximum values within a region of interest, expressed in gm/ml. Exam includes orbital meatal line to mid-thigh. Radiopharmaceutical: 11.91 mCi F-18 FDG (Fluorodeoxyglucose), IV. Time of imaging post radiopharmaceutical administration: 1 hour Injection site: Right forearm COMPARISON: CT abdomen pelvis wo/w [id number] 05/30/2023 8:40 AM, CT chest, abdomen and pelvis 08/30/2022 FINDINGS: Brain: Visualized brain has normal physiologic uptake. Pharynx: No abnormal uptake. Larynx: No abnormal uptake. Lungs, pleura and trachea: No abnormal uptake. Non radiotracer avid bandlike soft tissue density at the left lung apex is compatible with benign pleural scarring. Additional regions of non radiotracer avid streaky density in the posterior right upper lobe adjacent to the major fissure are compatible with scarring. [id number] bilateral centrilobular emphysematous changes are noted. Heart: Normal physiologic uptake. Mediastinal space: No abnormal uptake. Diaphragm: There is a moderate hiatal hernia. No abnormal uptake. Liver: No abnormal uptake. Gallbladder and bile ducts: No abnormal uptake. Pancreas: No abnormal uptake. Spleen: No abnormal uptake. Adrenal glands: A low-density 3.0 x 2.5 cm right adrenal nodule is not radiotracer avid compatible with a benign finding, likely representing an adenoma. Unremarkable left adrenal gland. Kidneys and ureters: An exophytic posterior right renal low-density lesion is not radiotracer avid measuring 2.5 x 2.0 cm on series 3, image 121. This structure an additional low-density structures in the right kidney are also noted likely representing benign cysts. A rounded soft tissue density adjacent to the distal left ureter which may represent a lymph node measuring 8 mm on series 3, image 182 is noted, SUV max 14.8. This may alternatively represent normal physiologic uptake within a slightly dilated distal left ureter. Stomach and bowel: No abnormal uptake. Urinary bladder: Curvilinear calcification in the anterior inferior wall of the urinary bladder is noted. Assessment of uptake in the wall of the urinary bladder is limited by PET-CT secondary to normal excreted intraluminal urinary radiotracer uptake. Vasculature: No abnormal uptake. Lymph nodes: Mediastinal lymph nodes are slightly increased in size compared with 08/30/2022. A 0.9 x 0.5 cm pretracheal lymph node on series 3, image 68 is noted, SUV max 3.7. Clustered more inferiorly located precarinal lymph nodes measuring up to 1.4 x 0.8 cm on series 3, image 72 are noted, SUV max 5.2. A left retroperitoneal periaortic 1.0 x 0.7 cm lymph node on series 3, image 137 demonstrates an SUV max 3.5. A left external iliac chain 7 mm lymph node on series 3, image 174 is noted, SUV max 2.6. Additional more distally located radiotracer avid left external iliac chain lymph nodes are noted measuring up to 1.4 cm on series 3, image 180, SUV max 5.2. These pelvic lymph nodes appear similar in size. Bones/joints: No abnormal uptake in the visualized axial and appendicular skeleton. No abnormal uptake in the visualized axial and appendicular skeleton. An old appearing moderate T10 vertebral body compression fracture is similar. Soft tissues: Mild uptake in the region of the distal left gluteus minimus tendon is noted on PET series 12, image 191 without evidence of a discrete correlating lesion on the CT images, likely inflammatory in nature. METRICS: Mediastinal blood pool: SUV max 2.0 [facility] [id number] IMPRESSION: 1. Calcification in the wall of the urinary bladder is noted which may reflect post treatment changes. Assessment for abnormal hypermetabolic uptake within wall of the urinary bladder is limited by PET-CT. 2. Radiotracer avid left external iliac chain, retroperitoneal and mediastinal lymph nodes are noted concerning for metastases. 3. Uptake in the left pelvis likely represents physiologic uptake within a slightly dilated left ureter. The possibility of metastatic lesion or lymph noted adjacent to the left distal ureter cannot be entirely excluded. 4. Additional nonurgent findings as detailed above.
[2023-10-05 08:25] LABS: Basophils % 0.5 %; Eosinophils # 0.3 10^3/uL (0.0-0.8); Eosinophils % 5.6 %; Hematocrit 43.5 % (36-47); Lymphocytes # 1.2 10^3/uL (0.8-4.8); Lymphocytes % 21.1 %; Mean Corpuscular HGB Conc 30.6 g/dL (30-55); Mean Corpuscular Hemoglobin 27.8 pg (27-33); Mean Corpuscular Volume 90.8 fl (85-98); Mean Platelet Volume 9.7 fL (7.4-10.4); Monocytes # 0.7 10^3/uL (0.2-0.9); Monocytes % 12.5 %; Neutrophils # 3.42 10^3/uL (1.8-7.7); Neutrophils % 60.1 %; Nucleated Red Blood Cells % 0 %; Platelet Count 274 10^3/cmm (157-399); Red Blood Count 4.79 10^6/uL (3.85-5.65); Red Cell Distribution Width 16.6 % (12.1-15.1); White Blood Count 5.69 10^3/uL (3.29-11.43)
[2023-10-05 08:35] LABS: Alanine Aminotransferase 11 U/L (0-33); Albumin Level 3.6 g/dL (3.5-5.2); Alkaline Phosphatase 72 U/L (35-105); Anion Gap 14.2 (5-19); Aspartate Amino Transferase 15 U/L (0-32); Blood Urea Nitrogen 20 mg/dL (8-23); Calcium 9.1 mg/dL (8.5-10.5); Carbon Dioxide 23 mmol/L (22-29); Chloride 108 mmol/L (98-107); Creatinine Clr Calc Pharmacy 41.4739; Globulin 3.6 g/dL (1.3-4.6); Glucose 87 mg/dL (65-115); Osmolality Calculated 294 mOsm/kg (285-295); Potassium 4.2 mmol/L (3.5-5.1); Sodium 141 mmol/L (136-145); Total Bilirubin 0.3 mg/dL (0.15-1.2); Total Protein 7.2 g/dL (6.6-8.7)
[2023-10-05 11:07] LABS: Hepatitis A Antibody IgM Non-Reactive (Nonreactive); Hepatitis B Core AB, Total Non-Reactive (Nonreactive); Hepatitis B Surface AB < 3.5 (11.5-1000); Hepatitis B Surface Antigen Non-Reactive (Nonreactive); Hepatitis C Virus Antibody Non-Reactive (Nonreactive)
== END 2023-10-17 23:59 | disposition home or self-care (01) ==
PROVIDERS: Internal Medicine; Absent Provider Internal Medicine Medical Oncology; PCP Nurse Practitioner; Visit Provider Radiology Radiation Oncology
DX: D41.4 Neoplasm of uncertain behavior of bladder (principal); C67.9 Malignant neoplasm of bladder, unspecified; N28.1 Cyst of kidney, acquired; J44.9 Chronic obstructive pulmonary disease, unspecified
CPT/HCPCS: 36415; 78815; 80053; 81001; 85025; 86705; 86706; 86709; 86803; 87086; 87340; 99205; 99213; A9552

== ENCOUNTER 2023-10-20 10:36 | Outpatient (CLI) | payer MEDICARE, OTHER, SELFPAY ==
--- NOTE | 2023-10-20 11:00 | MR_ITS ---
WS: [id number] MRI HEAD WITH CONTRAST TECHNIQUE: Sagittal T1, T2 axial, T2 axial FLAIR, axial susceptibility weighted imaging, axial diffus ion weighted images, and coronal T2 images were obtained. Pre and post-T1 axial and post T1 coronal i mages. ADC and FSPGR images. CLINICAL INFORMATION: urothelial carcinoma of bladder COMPARISON: None. FINDINGS: No abnormal intracranial enhancement. No enhancing intracranial lesions. Normal dural venous sinuses. Normal optic chiasm and pituitary infundibulum. No evidence of restricted diffusion to suggest acute ischemia. Ventricular system basilar cisterns ar e patent. Mild small vessel changes. Moderate parenchymal volume loss. Tiny chronic lacunar infarcts in the RIGHT cerebellum. Normal vascular flow voids at the skull base. No extra-axial fluid collectio ns. Paranasal sinuses are well aerated. Mastoid air cells are well aerated. Normal optic chiasm and p ituitary infundibulum. MR/MR head wo/w con [id number] IMPRESSION: 1. No evidence of enhancing intracranial metastatic disease. 2. No restricted diffusion to suggest acute ischemia. 3. Mild small vessel changes with moderate parenchymal volume loss. 4. Tiny chronic lacunar infarcts RIGHT cerebellum.
[2023-10-20] MEDS: gadobenate dimeglumine 20 mL vial IV (13:33)
== END 2023-10-20 10:37 | disposition home or self-care (01) ==
LOC: RAD 10:36
PROVIDERS: PCP Nurse Practitioner; Visit Provider Internal Medicine
DX: C67.9 Malignant neoplasm of bladder, unspecified (principal); Z86.73 Personal history of transient ischemic attack (TIA), and cerebral infarction without residual deficits
CPT/HCPCS: 70553; A9577

== ENCOUNTER → 2023-10-30 12:00 | Day surgery (SDC) | payer MEDICARE, OTHER, SELFPAY | LOC: GILAB 11-23 11:55 | PROVIDERS: PCP Nurse Practitioner; Visit Provider Nurse Practitioner Family | DX: C67.9 Malignant neoplasm of bladder, unspecified (principal) | CPT/HCPCS: 99204 ==

== ENCOUNTER 2023-10-31 07:30 | Day surgery (SDC) | payer MEDICARE, OTHER, SELFPAY ==
[2023-10-31] VITALS (7 sets, daily range): BP systolic 120–162; BP diastolic 52–79; PULSE 46–64; RESP 16–21; TEMP 36.3–36.9; O2SAT 94–100; BMI 25.6
--- NOTE | 2023-10-31 07:50 | ECG_ITS ---
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 Measurements Intervals [place] Rate: 64 P: 80 NM: 188 QRS: 67 QRSD: 92 T: 79 QT: 409 QTc: 423 Interpretive Statements SINUS RHYTHM WITH OCCASIONAL VENTRICULAR PREMATURE COMPLEXES Compared to ECG 12/24/2018 12:33:34 Ventricular premature complex(es) now present Electronically Signed On 10-31-2023 17:51:34 CDT by Navin Almonte M.D. [id number]
--- NOTE | 2023-10-31 08:02 | W.PM.OPSUD ---
Surgery/Procedure H&P Update DATE OF PROCEDURE: October 31, 2023 DATE H&P PERFORMED: 10/30/23 H&P UPDATE INFORMATION: I have reviewed H&P completed within last 30 days, I have examined patient prior to procedure and No changes to prior documentation PLANNED PROCEDURE: Operation Date: 10/31/23 09:30 Proposed Procedures p Portacath Placement 02942, C67.9(Not Applicable) - Link Schwarz DO
--- NOTE | 2023-10-31 08:10 | XRR_ITS ---
PROCEDURE INFORMATION: Exam: XR Chest Exam date and time: 10/31/2023 9:23 AM Age: 78 years old Clinical indication: Device placement; Other: Postop mediport placement; Prior surgery; Surgery date: Post-operative (0-2 days) TECHNIQUE: Imaging protocol: Radiologic exam of the chest. Views: 1 view. COMPARISON: CT chest abdpel w/*[id number] 08/30/2022 4:04 PM FINDINGS: Tubes, catheters and devices: Interval placement of left subclavian port infusion catheter with tip in SVC. Lungs: Features of pulmonary emphysema and basilar interstitial coarsening noted also present on prior CT. No acute pulmonary pathology. Pleural spaces: No pneumothorax. No pleural effusion. Heart/Mediastinum: Cardiomediastinal contours within normal limits. Moderate hiatal hernia. Bones/joints: Thoracolumbar spine curvature with degenerative change. XR/XR chest 1V portable [id number] IMPRESSION: Interval placement of port infusion catheter. Features of COPD. No acute pathology.
--- NOTE | 2023-10-31 08:10 | SC_ITS ---
WS: [id number] C-ARM RADIOGRAPHS CHEST; 2 IMAGES HISTORY: Mediport placement COMPARISON: None available. Intraoperative imaging during LEFT subclavian Mediport placement. Tip appears appropriate. SC/C-arm FL for CVA [id number] IMPRESSION: Intraoperative imaging during LEFT subclavian Mediport placement.
--- NOTE | 2023-10-31 08:11 | ANES.PREANE2 ---
Pre-Anesthetic Assessment Height/Weight: Height 1.57 m Operation Date: 10/31/23 09:30 Proposed Procedures p Portacath Placement 57671, C67.9(Not Applicable) - Link Schwarz, DO Social No tobacco Exam alert, oriented x 3, clear to auscultation bilaterally and regular rate & rhythm Airway Submandibular: within normal limits Cervical ROM: within normal limits Mallampati: Class I Pulmonary Chronic Obstructive Pulmonary Disease CV/HEM Hypertension None reported Hepatic None reported GI None reported Metabolic None reported Anesthetic Plan ASA status: 3 Anesthesia: MAC Medications/Allergies Home Medications Medication Instructions Recorded Confirmed Last Taken Type aspirin 81 mg tablet,delayed 81 mg PO DAILY 08/07/19 10/30/23 08/18/23 History release (Adult Low Dose Aspirin) cholecalciferol (vitamin D3) 125 5,000 unit PO DAILY 08/07/19 10/31/23 10/30/23 History mcg (5,000 unit) capsule ferrous gluconate 324 mg (37.5 mg 324 mg PO DAILY 08/07/19 10/31/23 10/30/23 History iron) tablet rosuvastatin 20 mg tablet 20 mg PO DAILY 02/15/22 10/30/23 10/29/23 History albuterol sulfate 90 mcg/actuation 2 inh inhalation Q4H PRN shortness 02/09/23 10/30/23 10/16/23 Rx aerosol inhaler (Ventolin HFA) of breath or wheezing #18 grams acetaminophen 500 mg tablet 500 mg PO Q6H PRN Pain 06/09/23 10/30/23 10/30/23 History carboxymethylcellulose sodium 1 % 2 drp ophthalmic (eye) BID PRN Dry 06/09/23 10/30/23 10/23/23 History eye liquid gel drops Eyes valsartan 40 mg tablet (Diovan) 40 mg PO DAILY #30 tabs 08/15/23 10/30/23 10/29/23 Rx fluticasone fur. 100 mcg-umeclid 1 inh inhalation Q24H #60 ea 09/08/23 10/31/23 10/31/23 Rx 62.5 mcg-vilant 25 mcg inhalat.powder (Trelegy Ellipta) olanzapine 5 mg tablet 5 mg PO QPM Breakthrough Nausea 10/11/23 10/30/23 Unknown Rx and Vomitting #30 tabs prochlorperazine maleate 10 mg 10 mg PO Q4H PRN Mild Nausea #30 10/11/23 10/30/23 Unknown Rx tablet (Compazine) tabs metoprolol succinate 25 mg 25 mg PO QPM 10/30/23 10/31/23 10/30/23 History tablet,extended release 24 hr Allergies Allergy/AdvReac Type Severity Reaction Status Date / Time sulfamethoxazole AdvReac Intermediate ADR-Abdominal Verified 10/30/23 14:50 [From Bactrim] Pain trimethoprim [From Bactrim] AdvReac Intermediate ADR-Abdominal Verified 10/30/23 14:50 Pain PFSH Anesthesia Medical History Urothelial carcinoma of bladder with invasion of muscle Lesion of urinary bladder Dietary iron deficiency Leaky heart valve seen on echo Essential (primary) hypertension Mixed hyperlipidemia Vitamin B12 deficiency Vitamin D deficiency COPD, moderate Surgical History Status post hysteroscopic polypectomy 2018 History of tubal ligation 1982 History of oral surgery Gum graft 1998 History of dilation and curettage 1989 Status post cataract surgery 2011 Family History Mother No problems noted. Father Cancer Sister Cancer Other Heart disease Hypertension Social History Smoking and tobacco/nicotine status: never used tobacco/nicotine Second hand smoke exposure: No Alcohol intake: never Substance/Drug Use: never Caregiver/support person: No Lives independently: Yes Household members: spouse Housing: House Marital status: Number of children: 2 Current occupational status: retired Do you think of yourself as: Straight/Heterosexual Current gender identity: Female Data Anesthesia Cardiac Studies: No Data to Display
[2023-10-31] MEDS: sodium chloride 0.9% 1,000 ML 30 ML IV (08:15)
[2023-10-31] MEDS: ceFAZolin 2,000 MG in sodium chloride 0.9% (plus) 50 ML 100 MG IV (08:39)
[2023-10-31] MEDS: sodium chloride 0.9% 100 mL Bag XX (09:01)
[2023-10-31] MEDS: heparin, porcine 1,000 unit/mL INJ 10 mL 10000 UNIT IRRIGATION (09:01)
[2023-10-31] MEDS: lidocaine-epi 1% 20 mL INJ INJECTION (09:06)
--- NOTE | 2023-10-31 09:10 | P.OP_ITS ---
Operative Report Date of procedure: October 31, 2023 Pre-op diagnosis: Bladder cancer Post-op diagnosis: same Procedure done: Mediport placement Intraoperative interpretation of fluoroscopy Implants: PowerPort Specimens removed/disposition: None Surgeon: Link Schwarz DO Anesthesia: MAC and Local Estimated blood loss (mL): 5 Complications: None apparent Brief History: This very pleasant 78-year-old female with bladder cancer. Oncology requested Mediport placement for chemotherapy access. The risks and benefits were explained and documented. Procedure: They put another order I will do right now things the patient was taken to the operating room and placed supine on the operating room table. All bony prominences were padded. She was given IV sedation and monitored throughout the case by the anesthesia personnel. SCDs were placed and turned on. The arms were tucked to the side. Patient received Ancef 2 g preoperatively IV. The bilateral chest wall was prepped and draped in usual sterile fashion using chlorhexidine base prep. Sterile drapes were applied. We did procedure pause prior to beginning. An 18 gauge needle was placed in the left subclavian vein. Dark, nonpulsatile blood was aspirated. A guidewire was placed through the needle centrally toward the atrial/vena caval junction. Fluoroscopy visualized good placement. The needle was removed and the guidewire was clipped to the drape with a hemostat. Further local anesthetic was infiltrated in the soft tissues of the left chest wall and a #15 blade was used to make a horizontal skin incision. A subcutaneous Mediport pocket was created using Bovie cautery, dissecting down through the ski n and subcutaneous tissues. Meticulous hemostasis was achieved. The Mediport was sutured in position using 3-0 vicryl suture x2 stitches. A #15 blade was used to make a small skin radha around the guidewire insertion area. The Mediport tubing was tunneled through the subcutaneous tissues up to the needle insertion location. A dilator with a peel-away sheath was placed over the guidewire and placed centrally. After measuring the Mediport tubing was cut to length so that the tip would end at the atrial/vena caval junction. The inner cannula and the guidewire were removed, leaving the dilator sheath in place. The Mediport was flushed. The tip of the catheter was inserted through the peel-away sheath and the peel-away sheath removed in the standard fashion. The Mediport was accessed with a straight [place] needle and dark, nonpulsatile blood was aspirated and flushed using heparinized saline to hep-lock the Mediport. Final fluoroscopy visualization showed no kink in the catheter and the tip of the Mediport tubing near the atrial/vena caval junction. There was no obvious pneumothorax. Both skin incisions were thoroughly irrigated and suctioned dry. Meticulous hemostasis noted. The dermis was approximated with 3-0 Vicryl in an interrupted fashion. Skin was closed with Dermabond. Patient was awakened from anesthesia and transferred via her cart to the recovery room in stable condition. All needle, sponge, and instrument counts were correct per the operating personnel x2 counts.
--- NOTE | 2023-10-31 13:47 | P.ANESPOST_ITS ---
Inpatient post-anesthesia follow up: Vital signs: Temperature 98 F Pulse Rate 64 Respiratory Rate 17 Blood Pressure 135/60 Pulse Oximetry 97 Oxygen Delivery Me thod Room Air Oxygen Flow Rate Fraction of Inspir ed Oxygen Hydration adequate: Yes Nausea and vomiting: No Pain level: con trolled Mental status: Baseline Additional Comments: no apparent anesthetic complications noted
== END 2023-10-31 10:05 | disposition home or self-care (01) ==
PROVIDERS: Visit Provider Surgery
PROC: (CPT 36561; principal; 2023-10-31 09:30)
DX: C67.9 Malignant neoplasm of bladder, unspecified (principal); I49.3 Ventricular premature depolarization
CPT/HCPCS: 36561; 71045; 76000; 77001; 93005; C1788; J0690; J1644; J2704; J7030

== ENCOUNTER 2023-11-01 07:18 | Oncology outpatient (recurring) (ONCR) | payer MEDICARE, OTHER, SELFPAY ==
[2023-10-24 13:03] LABS: Basophils % 0.3 %; Eosinophils # 0.1 10^3/uL (0.0-0.8); Eosinophils % 2.1 %; Hematocrit 43.8 % (36-47); Lymphocytes # 1.2 10^3/uL (0.8-4.8); Lymphocytes % 18.6 %; Mean Corpuscular HGB Conc 31.1 g/dL (30-55); Mean Corpuscular Hemoglobin 27.6 pg (27-33); Mean Corpuscular Volume 88.8 fl (85-98); Mean Platelet Volume 10.1 fL (7.4-10.4); Monocytes # 0.5 10^3/uL (0.2-0.9); Monocytes % 7.7 %; Nucleated Red Blood Cells % 0 %; Platelet Count 259 10^3/cmm (157-399); Red Blood Count 4.93 10^6/uL (3.85-5.65); Red Cell Distribution Width 16.9 % (12.1-15.1); White Blood Count 6.34 10^3/uL (3.29-11.43)
[2023-10-24 13:41] LABS: Alanine Aminotransferase 10 U/L (0-33); Albumin Level 3.8 g/dL (3.5-5.2); Alkaline Phosphatase 80 U/L (35-105); Anion Gap 15.9 (5-19); Aspartate Amino Transferase 16 U/L (0-32); Blood Urea Nitrogen 22 mg/dL (8-23); Carbon Dioxide 23 mmol/L (22-29); Chloride 108 mmol/L (98-107); Creatinine Clr Calc Pharmacy 41.3286; Globulin 3.6 g/dL (1.3-4.6); Glucose 99 mg/dL (65-115); Osmolality Calculated 297 mOsm/kg (285-295); Potassium 4.9 mmol/L (3.5-5.1); Sodium 142 mmol/L (136-145); Thyroid Stimulating Hormone 1.19 uIU/mL (0.27-4.20); Total Bilirubin 0.5 mg/dL (0.15-1.2); Total Protein 7.4 g/dL (6.6-8.7)
[2023-11-01 08:17] LABS: Basophils % 0.5 %; Eosinophils # 0.2 10^3/uL (0.0-0.8); Eosinophils % 3.1 %; Hematocrit 42.1 % (36-47); Lymphocytes # 1.4 10^3/uL (0.8-4.8); Lymphocytes % 22.2 %; Mean Corpuscular HGB Conc 31.1 g/dL (30-55); Mean Corpuscular Hemoglobin 27.9 pg (27-33); Mean Corpuscular Volume 89.6 fl (85-98); Mean Platelet Volume 9.9 fL (7.4-10.4); Monocytes # 0.6 10^3/uL (0.2-0.9); Monocytes % 9.7 %; Neutrophils # 3.91 10^3/uL (1.8-7.7); Neutrophils % 64.3 %; Nucleated Red Blood Cells % 0 %; Platelet Count 245 10^3/cmm (157-399); Red Cell Distribution Width 16.6 % (12.1-15.1); White Blood Count 6.08 10^3/uL (3.29-11.43)
[2023-11-01 08:54] LABS: Alanine Aminotransferase 10 U/L (0-33); Albumin Level 3.5 g/dL (3.5-5.2); Alkaline Phosphatase 74 U/L (35-105); Anion Gap 12.3 (5-19); Aspartate Amino Transferase 14 U/L (0-32); Blood Urea Nitrogen 22 mg/dL (8-23); Calcium 8.9 mg/dL (8.5-10.5); Carbon Dioxide 22 mmol/L (22-29); Chloride 111 mmol/L (98-107); Cortisol Random 11.49 ug/dL (2.47-19.5); Creatinine Clr Calc Pharmacy 46.4947; Globulin 3.6 g/dL (1.3-4.6); Glucose 87 mg/dL (65-115); Osmolality Calculated 295 mOsm/kg (285-295); Potassium 4.3 mmol/L (3.5-5.1); Sodium 141 mmol/L (136-145); Thyroid Stimulating Hormone 1.09 uIU/mL (0.27-4.20); Total Bilirubin 0.3 mg/dL (0.15-1.2); Total Protein 7.1 g/dL (6.6-8.7)
[2023-11-01 09:32] VITALS: BMI 21.7
[2023-11-01] MEDS: diphenhydrAMINE 25 mg Capsule PO (10:00)
[2023-11-01] MEDS: acetaminophen 325 mg Tablet 650 MG PO (10:00)
[2023-11-01] MEDS: sodium chloride 0.9% 250 ML 75 ML IV (10:02)
[2023-11-01] MEDS: famotidine 20 mg/2 mL INJ IVP (10:02)
[2023-11-01] MEDS: ondansetron 2 mg/ML SDV 2 mL 8 MG IVP (10:09)
[2023-11-01] MEDS: pembrolizumab 200 MG in sodium chloride 0.9% 250 ML 516 MG IV (10:24)
[2023-11-01] MEDS: [UNRECOGNIZED DRUG - MIXTURE] 500 MG IV (11:12)
[2023-11-01 11:51] VITALS: BP 171/75; PULSE 63; RESP 16; TEMP 36.6; O2SAT 97
[2023-11-01 16:14] LABS: 25 Hydroxy Vitamin D 82 ng/mL (30-100); Vitamin B12 256 pg/mL (232-1245)
== END 2023-11-01 23:59 | disposition home or self-care (01) ==
PROVIDERS: Internal Medicine; Nurse Practitioner Family; Absent Provider Internal Medicine Medical Oncology; PCP Nurse Practitioner; Visit Provider Radiology Radiation Oncology
DX: Z53.9 Procedure and treatment not carried out, unspecified reason; Z51.12 Encounter for antineoplastic immunotherapy; C67.1 Malignant neoplasm of dome of bladder; C67.2 Malignant neoplasm of lateral wall of bladder; Z79.899 Other long term (current) drug therapy; E55.9 Vitamin D deficiency, unspecified; E53.9 Vitamin B deficiency, unspecified; Z79.52 Long term (current) use of systemic steroids
CPT/HCPCS: 36415; 80053; 82306; 82533; 82607; 84443; 85025; 96367; 96368; 96375; 96413; 96417; 99213; 99215; A4222; J1100; J2405; J3490; J7050; J9177; J9271

== ENCOUNTER 2023-11-08 10:52 | Oncology outpatient (recurring) (ONCR) | payer MEDICARE, OTHER, SELFPAY ==
[2023-11-08 11:32] LABS: Basophils % 0.2 %; Eosinophils # 0.3 10^3/uL (0.0-0.8); Eosinophils % 5.5 %; Hematocrit 41.6 % (36-47); Lymphocytes # 1.1 10^3/uL (0.8-4.8); Mean Corpuscular HGB Conc 31.3 g/dL (30-55); Mean Corpuscular Hemoglobin 28.4 pg (27-33); Mean Platelet Volume 9.5 fL (7.4-10.4); Monocytes # 0.6 10^3/uL (0.2-0.9); Monocytes % 10.4 %; Neutrophils # 3.48 10^3/uL (1.8-7.7); Neutrophils % 63.7 %; Nucleated Red Blood Cells % 0 %; Platelet Count 271 10^3/cmm (157-399); Red Blood Count 4.57 10^6/uL (3.85-5.65); Red Cell Distribution Width 16.8 % (12.1-15.1); White Blood Count 5.46 10^3/uL (3.29-11.43)
[2023-11-08 11:53] LABS: Alanine Aminotransferase 14 U/L (0-33); Albumin Level 3.7 g/dL (3.5-5.2); Alkaline Phosphatase 72 U/L (35-105); Anion Gap 13.9 (5-19); Aspartate Amino Transferase 18 U/L (0-32); Blood Urea Nitrogen 20 mg/dL (8-23); Calcium 8.5 mg/dL (8.5-10.5); Carbon Dioxide 23 mmol/L (22-29); Chloride 108 mmol/L (98-107); Globulin 3.4 g/dL (1.3-4.6); Glucose 97 mg/dL (65-115); Osmolality Calculated 295 mOsm/kg (285-295); Potassium 3.9 mmol/L (3.5-5.1); Sodium 141 mmol/L (136-145); Total Bilirubin 0.5 mg/dL (0.15-1.2); Total Protein 7.1 g/dL (6.6-8.7)
[2023-11-08 12:07] VITALS: BP 180/78; PULSE 88; RESP 16; TEMP 36.5; O2SAT 94
[2023-11-08] MEDS: diphenhydrAMINE 25 mg Capsule 50 MG PO (13:26)
[2023-11-08] MEDS: sodium chloride 0.9% 250 ML 75 ML IV (13:26)
[2023-11-08] MEDS: famotidine 20 mg/2 mL INJ IVP (13:27)
[2023-11-08] MEDS: acetaminophen 325 mg Tablet 650 MG PO (13:27)
[2023-11-08] MEDS: palonosetron 0.25 mg/5 mL SDV IVP (13:35)
[2023-11-08] MEDS: [UNRECOGNIZED DRUG - MIXTURE] 500 MG IV (13:55)
[2023-11-08 14:54] VITALS: BP 132/63; PULSE 63; RESP 16; TEMP 36.4; O2SAT 96
== END 2023-11-08 23:59 | disposition home or self-care (01) ==
PROVIDERS: Nurse Practitioner Family; Absent Provider Internal Medicine Medical Oncology; PCP Nurse Practitioner; Visit Provider Radiology Radiation Oncology
DX: Z79.899 Other long term (current) drug therapy; Z51.12 Encounter for antineoplastic immunotherapy; C67.1 Malignant neoplasm of dome of bladder; C67.2 Malignant neoplasm of lateral wall of bladder; N28.1 Cyst of kidney, acquired
CPT/HCPCS: 80053; 85025; 96375; 96413; 99214; J2469; J3490; J7050; J9177

== ENCOUNTER 2023-11-15 13:26 | Oncology outpatient (recurring) (ONCR) | payer MEDICARE, OTHER, SELFPAY ==
[2023-11-15 14:00] LABS: Basophils % 0.6 %; Eosinophils # 0.4 10^3/uL (0.0-0.8); Eosinophils % 6.1 %; Hematocrit 39.2 % (36-47); Lymphocytes # 1.2 10^3/uL (0.8-4.8); Lymphocytes % 18.5 %; Mean Corpuscular HGB Conc 31.4 g/dL (30-55); Mean Corpuscular Hemoglobin 28.2 pg (27-33); Mean Corpuscular Volume 89.9 fl (85-98); Mean Platelet Volume 9.9 fL (7.4-10.4); Monocytes # 0.6 10^3/uL (0.2-0.9); Monocytes % 9.8 %; Neutrophils # 4.19 10^3/uL (1.8-7.7); Neutrophils % 64.2 %; Nucleated Red Blood Cells % 0 %; Platelet Count 334 10^3/cmm (157-399); Red Blood Count 4.36 10^6/uL (3.85-5.65); Red Cell Distribution Width 17.3 % (12.1-15.1); White Blood Count 6.53 10^3/uL (3.29-11.43)
[2023-11-15 14:10] LABS: Alanine Aminotransferase 35 U/L (0-33); Albumin Level 3.7 g/dL (3.5-5.2); Anion Gap 13.9 (5-19); Aspartate Amino Transferase 45 U/L (0-32); Blood Urea Nitrogen 21 mg/dL (8-23); Calcium 8.6 mg/dL (8.5-10.5); Carbon Dioxide 24 mmol/L (22-29); Chloride 106 mmol/L (98-107); Glucose 100 mg/dL (65-115); Osmolality Calculated 291 mOsm/kg (285-295); Potassium 4.9 mmol/L (3.5-5.1); Sodium 139 mmol/L (136-145); Total Bilirubin 0.4 mg/dL (0.15-1.2)
[2023-11-15 14:11] LABS: Alkaline Phosphatase 85 U/L (35-105); Globulin 3.3 g/dL (1.3-4.6)
== END 2023-11-17 23:59 | disposition home or self-care (01) ==
LOC: ONCMED 13:26
PROVIDERS: Nurse Practitioner Family; Absent Provider Internal Medicine Medical Oncology; PCP Nurse Practitioner; Visit Provider Radiology Radiation Oncology
DX: C67.9 Malignant neoplasm of bladder, unspecified
CPT/HCPCS: 36591; 80053; 85025

== ENCOUNTER → 2023-11-17 10:32 | Outpatient (BNVA) | payer MEDICARE, OTHER, SELFPAY | PROVIDERS: PCP Nurse Practitioner; Visit Provider Surgery | DX: Z95.828 Presence of other vascular implants and grafts (principal) | CPT/HCPCS: 99214 ==

== ENCOUNTER 2023-11-22 10:44 | Oncology outpatient (recurring) (ONCR) | payer MEDICARE, OTHER, SELFPAY ==
[2023-11-22 11:29] LABS: Basophils % 0.5 %; Hematocrit 40.4 % (36-47); Lymphocytes # 1.3 10^3/uL (0.8-4.8); Lymphocytes % 30.6 %; Mean Corpuscular HGB Conc 30.9 g/dL (30-55); Mean Corpuscular Hemoglobin 28.3 pg (27-33); Mean Corpuscular Volume 91.6 fl (85-98); Mean Platelet Volume 9.4 fL (7.4-10.4); Monocytes # 0.7 10^3/uL (0.2-0.9); Monocytes % 16.4 %; Neutrophils # 2.09 10^3/uL (1.8-7.7); Nucleated Red Blood Cells % 0 %; Platelet Count 424 10^3/cmm (157-399); Red Blood Count 4.41 10^6/uL (3.85-5.65); Red Cell Distribution Width 17.7 % (12.1-15.1); White Blood Count 4.09 10^3/uL (3.29-11.43)
[2023-11-22 11:59] LABS: Alanine Aminotransferase 17 U/L (0-33); Albumin Level 3.6 g/dL (3.5-5.2); Alkaline Phosphatase 84 U/L (35-105); Anion Gap 15.8 (5-19); Aspartate Amino Transferase 18 U/L (0-32); Blood Urea Nitrogen 18 mg/dL (8-23); Calcium 9.2 mg/dL (8.5-10.5); Carbon Dioxide 23 mmol/L (22-29); Chloride 107 mmol/L (98-107); Globulin 3.4 g/dL (1.3-4.6); Glucose 90 mg/dL (65-115); Osmolality Calculated 293 mOsm/kg (285-295); Potassium 4.8 mmol/L (3.5-5.1); Sodium 141 mmol/L (136-145); Total Bilirubin 0.4 mg/dL (0.15-1.2)
[2023-11-22] MEDS: sodium chloride 0.9% 250 ML 75 ML IV (13:28)
[2023-11-22] MEDS: diphenhydrAMINE 25 mg Capsule PO (13:29)
[2023-11-22] MEDS: acetaminophen 325 mg Tablet 650 MG PO (13:29)
[2023-11-22] MEDS: famotidine 20 mg/2 mL INJ IVP (13:29)
[2023-11-22] MEDS: ondansetron 2 mg/ML SDV 2 mL 8 MG IVP (13:32)
[2023-11-22] MEDS: pembrolizumab 200 MG in sodium chloride 0.9% 250 ML 516 MG IV (13:54)
[2023-11-22] MEDS: [UNRECOGNIZED DRUG - MIXTURE] 500 MG IV (14:39)
[2023-11-22 15:25] VITALS: BP 161/83; PULSE 62; RESP 18; TEMP 36.3; O2SAT 93
== END 2023-11-22 23:59 | disposition home or self-care (01) ==
PROVIDERS: Nurse Practitioner Family; Absent Provider Internal Medicine Medical Oncology; PCP Nurse Practitioner; Visit Provider Radiology Radiation Oncology
DX: D41.4 Neoplasm of uncertain behavior of bladder (principal); C67.9 Malignant neoplasm of bladder, unspecified; N28.1 Cyst of kidney, acquired; J44.9 Chronic obstructive pulmonary disease, unspecified; Z79.899 Other long term (current) drug therapy; C67.1 Malignant neoplasm of dome of bladder; C67.2 Malignant neoplasm of lateral wall of bladder; Z53.9 Procedure and treatment not carried out, unspecified reason; Z79.52 Long term (current) use of systemic steroids; Z79.620 Long term (current) use of immunosuppressive biologic; Z51.12 Encounter for antineoplastic immunotherapy
CPT/HCPCS: 80053; 84443; 85025; 96367; 96375; 96413; 96417; 99214; J1100; J2405; J3490; J7050; J9177; J9271

== ENCOUNTER 2023-11-29 10:59 | Oncology outpatient (recurring) (ONCR) | payer MEDICARE, OTHER, SELFPAY ==
[2023-11-29 11:16] LABS: Basophils % 0.4 %; Eosinophils # 0.1 10^3/uL (0.0-0.8); Hematocrit 43.4 % (36-47); Lymphocytes # 1.5 10^3/uL (0.8-4.8); Lymphocytes % 20.6 %; Mean Corpuscular HGB Conc 31.3 g/dL (30-55); Mean Corpuscular Hemoglobin 28.7 pg (27-33); Mean Corpuscular Volume 91.6 fl (85-98); Mean Platelet Volume 9.5 fL (7.4-10.4); Monocytes # 0.9 10^3/uL (0.2-0.9); Monocytes % 12.8 %; Neutrophils # 4.76 10^3/uL (1.8-7.7); Neutrophils % 64.8 %; Nucleated Red Blood Cells % 0 %; Platelet Count 400 10^3/cmm (157-399); Red Blood Count 4.74 10^6/uL (3.85-5.65); Red Cell Distribution Width 17.8 % (12.1-15.1); White Blood Count 7.34 10^3/uL (3.29-11.43)
[2023-11-29 11:38] LABS: Alanine Aminotransferase 17 U/L (0-33); Alkaline Phosphatase 89 U/L (35-105); Anion Gap 15.9 (5-19); Aspartate Amino Transferase 23 U/L (0-32); Blood Urea Nitrogen 18 mg/dL (8-23); Calcium 9.2 mg/dL (8.5-10.5); Carbon Dioxide 22 mmol/L (22-29); Chloride 107 mmol/L (98-107); Globulin 3.5 g/dL (1.3-4.6); Glucose 95 mg/dL (65-115); Osmolality Calculated 292 mOsm/kg (285-295); Potassium 4.9 mmol/L (3.5-5.1); Sodium 140 mmol/L (136-145); Total Bilirubin 0.5 mg/dL (0.15-1.2); Total Protein 7.5 g/dL (6.6-8.7)
[2023-11-29] MEDS: acetaminophen 325 mg Tablet 650 MG PO (14:16)
[2023-11-29] MEDS: sodium chloride 0.9% 250 ML 75 ML IV (14:16)
[2023-11-29] MEDS: diphenhydrAMINE 25 mg Capsule PO (14:16)
[2023-11-29] MEDS: palonosetron 0.25 mg/5 mL SDV IVP (14:22)
[2023-11-29] MEDS: famotidine 20 mg/2 mL INJ IVP (14:27)
[2023-11-29] MEDS: dexamethasone 4 mg/mL INJ 5 mL 12 MG IV (14:30)
[2023-11-29] MEDS: [UNRECOGNIZED DRUG - MIXTURE] 500 MG IV (14:46)
--- NOTE | 2023-11-29 15:03 | PC.NURSE ---
Patient having hair loss and faint fine rash to back and bilateral legs. MD aware.
[2023-11-29 15:56] VITALS: BP 131/67; PULSE 72; RESP 16; O2SAT 92
== END 2023-11-29 23:59 | disposition home or self-care (01) ==
PROVIDERS: Nurse Practitioner Family; Absent Provider Internal Medicine Medical Oncology; PCP Nurse Practitioner; Visit Provider Radiology Radiation Oncology
DX: C67.8 Malignant neoplasm of overlapping sites of bladder; Z79.52 Long term (current) use of systemic steroids; Z51.11 Encounter for antineoplastic chemotherapy; Z79.899 Other long term (current) drug therapy; Z95.828 Presence of other vascular implants and grafts; K21.9 Gastro-esophageal reflux disease without esophagitis; R21 Rash and other nonspecific skin eruption
CPT/HCPCS: 80053; 85025; 96375; 96413; 99214; J1100; J2469; J3490; J7050; J9177

== ENCOUNTER → 2023-12-05 11:00 | Outpatient (BNVA) | payer MEDICARE, OTHER, SELFPAY | PROVIDERS: PCP Nurse Practitioner; Visit Provider Nurse Practitioner | DX: K59.00 Constipation, unspecified (principal) | CPT/HCPCS: 74018; 80053; 80061; 84443; 85025 ==

== ENCOUNTER 2023-12-13 08:35 | Oncology outpatient (recurring) (ONCR) | payer MEDICARE, OTHER, SELFPAY ==
[2023-12-13 09:10] LABS: Basophils % 0.3 %; Eosinophils # 0.1 10^3/uL (0.0-0.8); Eosinophils % 1.1 %; Hematocrit 41.8 % (36-47); Lymphocytes % 14.9 %; Mean Corpuscular HGB Conc 31.6 g/dL (30-55); Mean Corpuscular Hemoglobin 28.9 pg (27-33); Mean Corpuscular Volume 91.5 fl (85-98); Mean Platelet Volume 10.1 fL (7.4-10.4); Monocytes # 0.9 10^3/uL (0.2-0.9); Monocytes % 13.9 %; Neutrophils # 4.44 10^3/uL (1.8-7.7); Neutrophils % 69.5 %; Nucleated Red Blood Cells % 0 %; Platelet Count 386 10^3/cmm (157-399); Red Blood Count 4.57 10^6/uL (3.85-5.65); Red Cell Distribution Width 17.7 % (12.1-15.1); White Blood Count 6.39 10^3/uL (3.29-11.43)
[2023-12-13 09:47] LABS: Alanine Aminotransferase 10 U/L (0-33); Albumin Level 3.8 g/dL (3.5-5.2); Alkaline Phosphatase 82 U/L (35-105); Anion Gap 15.9 (5-19); Aspartate Amino Transferase 12 U/L (0-32); Blood Urea Nitrogen 28 mg/dL (8-23); Calcium 9.6 mg/dL (8.5-10.5); Carbon Dioxide 23 mmol/L (22-29); Chloride 105 mmol/L (98-107); Globulin 3.5 g/dL (1.3-4.6); Glucose 101 mg/dL (65-115); Osmolality Calculated 294 mOsm/kg (285-295); Potassium 4.9 mmol/L (3.5-5.1); Sodium 139 mmol/L (136-145); Total Bilirubin 0.3 mg/dL (0.15-1.2); Total Protein 7.3 g/dL (6.6-8.7)
[2023-12-13] MEDS: sodium chloride 0.9% 250 ML 75 ML IV (11:49)
[2023-12-13] MEDS: acetaminophen 325 mg Tablet 650 MG PO (11:52)
[2023-12-13] MEDS: diphenhydrAMINE 25 mg Capsule PO (11:53)
[2023-12-13] MEDS: famotidine 20 mg/2 mL INJ IVP (11:54)
[2023-12-13] MEDS: ondansetron 2 mg/ML SDV 2 mL 8 MG IVP (11:57)
[2023-12-13] MEDS: dexamethasone 4 mg/mL INJ 5 mL 12 MG IVP (12:02)
[2023-12-13] MEDS: pembrolizumab 200 MG in sodium chloride 0.9% 250 ML 516 MG IV (12:21)
[2023-12-13] MEDS: SODIUM CHLORIDE 0.9% IV (12:54)
[2023-12-13] MEDS: ENFORTUMAB VEDOTIN EJFV IV (12:54)
[2023-12-13 13:59] VITALS: BP 116/68; PULSE 67; RESP 16; TEMP 36.2; O2SAT 96
== END 2023-12-13 23:59 | disposition home or self-care (01) ==
PROVIDERS: Nurse Practitioner Family; Absent Provider Internal Medicine Medical Oncology; PCP Nurse Practitioner; Visit Provider Radiology Radiation Oncology
DX: Z79.899 Other long term (current) drug therapy; C67.1 Malignant neoplasm of dome of bladder; C67.2 Malignant neoplasm of lateral wall of bladder; Z53.9 Procedure and treatment not carried out, unspecified reason; Z51.12 Encounter for antineoplastic immunotherapy; Z79.52 Long term (current) use of systemic steroids
CPT/HCPCS: 80053; 85025; 96375; 96413; 96417; 99214; A4222; J1100; J2405; J3490; J7050; J9177; J9271

== ENCOUNTER 2023-12-20 08:41 | Oncology outpatient (recurring) (ONCR) | payer MEDICARE, OTHER, SELFPAY ==
[2023-12-20 09:00] LABS: Basophils % 0.2 %; Eosinophils # 0.1 10^3/uL (0.0-0.8); Eosinophils % 1.2 %; Hematocrit 40.4 % (36-47); Lymphocytes # 1.2 10^3/uL (0.8-4.8); Lymphocytes % 20.1 %; Mean Corpuscular HGB Conc 31.9 g/dL (30-55); Mean Corpuscular Hemoglobin 28.9 pg (27-33); Mean Corpuscular Volume 90.6 fl (85-98); Mean Platelet Volume 9.7 fL (7.4-10.4); Monocytes # 0.9 10^3/uL (0.2-0.9); Monocytes % 14.7 %; Neutrophils # 3.86 10^3/uL (1.8-7.7); Neutrophils % 63.5 %; Nucleated Red Blood Cells % 0 %; Platelet Count 387 10^3/cmm (157-399); Red Blood Count 4.46 10^6/uL (3.85-5.65); Red Cell Distribution Width 17.5 % (12.1-15.1); White Blood Count 6.07 10^3/uL (3.29-11.43)
[2023-12-20 09:16] LABS: Alanine Aminotransferase 10 U/L (0-33); Albumin Level 3.8 g/dL (3.5-5.2); Alkaline Phosphatase 73 U/L (35-105); Anion Gap 15.4 (5-19); Aspartate Amino Transferase 16 U/L (0-32); Blood Urea Nitrogen 32 mg/dL (8-23); Calcium 9.3 mg/dL (8.5-10.5); Carbon Dioxide 22 mmol/L (22-29); Chloride 106 mmol/L (98-107); Globulin 3.2 g/dL (1.3-4.6); Glucose 97 mg/dL (65-115); Osmolality Calculated 295 mOsm/kg (285-295); Potassium 4.4 mmol/L (3.5-5.1); Sodium 139 mmol/L (136-145); Total Bilirubin 0.4 mg/dL (0.15-1.2)
[2023-12-20 10:15] VITALS: BP 158/67; PULSE 62; RESP 16; TEMP 36.2; O2SAT 91
[2023-12-20] MEDS: sodium chloride 0.9% 250 ML 75 ML IV (10:28)
[2023-12-20] MEDS: famotidine 20 mg/2 mL INJ IVP (10:28)
[2023-12-20] MEDS: acetaminophen 325 mg Tablet 650 MG PO (10:29)
[2023-12-20] MEDS: diphenhydrAMINE 25 mg Capsule PO (10:29)
[2023-12-20] MEDS: palonosetron 0.25 mg/5 mL SDV IVP (10:29)
[2023-12-20] MEDS: dexamethasone 4 mg/mL INJ 5 mL 12 MG IVP (10:30)
[2023-12-20] MEDS: [UNRECOGNIZED DRUG - MIXTURE] 500 MG IV (11:21)
[2023-12-20 12:15] VITALS: BP 134/63; PULSE 58; RESP 17; TEMP 36.4; O2SAT 98
== END 2023-12-20 23:59 | disposition home or self-care (01) ==
PROVIDERS: Nurse Practitioner Family; Absent Provider Internal Medicine Medical Oncology; PCP Nurse Practitioner; Visit Provider Radiology Radiation Oncology
DX: Z79.899 Other long term (current) drug therapy; C67.1 Malignant neoplasm of dome of bladder; C67.2 Malignant neoplasm of lateral wall of bladder; Z53.9 Procedure and treatment not carried out, unspecified reason; Z51.12 Encounter for antineoplastic immunotherapy; Z79.52 Long term (current) use of systemic steroids; Z79.69 Long term (current) use of other immunomodulators and immunosuppressants
CPT/HCPCS: 80053; 85025; 96375; 96413; 99213; J1100; J2469; J3490; J7050; J9177

== ENCOUNTER 2024-01-03 08:24 | Oncology outpatient (recurring) (ONCR) | payer MEDICARE, OTHER, SELFPAY ==
[2024-01-03 08:36] VITALS: BP 119/78; PULSE 62; RESP 18; TEMP 36.6; O2SAT 94
[2024-01-03 08:55] LABS: Basophils % 0.4 %; Eosinophils # 0.1 10^3/uL (0.0-0.8); Eosinophils % 2.6 %; Hematocrit 40.6 % (36-47); Lymphocytes # 1.2 10^3/uL (0.8-4.8); Lymphocytes % 21.7 %; Mean Corpuscular HGB Conc 32.3 g/dL (30-55); Mean Corpuscular Hemoglobin 29.7 pg (27-33); Mean Corpuscular Volume 92.1 fl (85-98); Mean Platelet Volume 9.9 fL (7.4-10.4); Monocytes # 0.7 10^3/uL (0.2-0.9); Monocytes % 13.3 %; Neutrophils % 61.6 %; Nucleated Red Blood Cells % 0 %; Platelet Count 363 10^3/cmm (157-399); Red Blood Count 4.41 10^6/uL (3.85-5.65); Red Cell Distribution Width 18.9 % (12.1-15.1); White Blood Count 5.35 10^3/uL (3.29-11.43)
[2024-01-03 09:25] LABS: Alanine Aminotransferase 10 U/L (0-33); Albumin Level 3.9 g/dL (3.5-5.2); Alkaline Phosphatase 81 U/L (35-105); Anion Gap 18.5 (5-19); Aspartate Amino Transferase 14 U/L (0-32); Blood Urea Nitrogen 28 mg/dL (8-23); Calcium 9.2 mg/dL (8.5-10.5); Carbon Dioxide 20 mmol/L (22-29); Chloride 108 mmol/L (98-107); Creatinine Clr Calc Pharmacy 41.1836; Globulin 3.3 g/dL (1.3-4.6); Glucose 94 mg/dL (65-115); Osmolality Calculated 299 mOsm/kg (285-295); Potassium 4.5 mmol/L (3.5-5.1); Sodium 142 mmol/L (136-145); T3 Free 2.9 PG/ML (2.0-4.4); Thyroid Stimulating Hormone 1.76 uIU/mL (0.27-4.20); Total Bilirubin 0.3 mg/dL (0.15-1.2); Total Protein 7.2 g/dL (6.6-8.7)
[2024-01-03] MEDS: sodium chloride 0.9% 250 ML 75 ML IV (11:26)
[2024-01-03] MEDS: diphenhydrAMINE 25 mg Capsule PO (11:29)
[2024-01-03] MEDS: acetaminophen 325 mg Tablet 650 MG PO (11:29)
[2024-01-03] MEDS: famotidine 20 mg/2 mL INJ IVP (11:30)
[2024-01-03] MEDS: ondansetron 2 mg/ML SDV 2 mL 8 MG IVP (11:32)
[2024-01-03] MEDS: dexamethasone 4 mg/mL INJ 5 mL 12 MG IV (11:35)
[2024-01-03] MEDS: pembrolizumab 200 MG in sodium chloride 0.9% 250 ML 516 MG IV (11:45)
[2024-01-03] MEDS: [UNRECOGNIZED DRUG - MIXTURE] 500 MG IV (12:28)
[2024-01-03 13:15] VITALS: BP 144/74; PULSE 68; RESP 16; TEMP 36.2; O2SAT 97
== END 2024-01-03 23:59 | disposition home or self-care (01) ==
PROVIDERS: Internal Medicine; Absent Provider Internal Medicine Medical Oncology; PCP Nurse Practitioner; Visit Provider Radiology Radiation Oncology
DX: Z79.899 Other long term (current) drug therapy; C67.1 Malignant neoplasm of dome of bladder; C67.2 Malignant neoplasm of lateral wall of bladder; Z51.12 Encounter for antineoplastic immunotherapy; Z79.52 Long term (current) use of systemic steroids; I10 Essential (primary) hypertension; N30.90 Cystitis, unspecified without hematuria; K21.9 Gastro-esophageal reflux disease without esophagitis
CPT/HCPCS: 80053; 84443; 84481; 85025; 96375; 96413; 96417; 99214; A4222; J1100; J2405; J3490; J7050; J9177; J9271

== ENCOUNTER 2024-01-10 08:15 | Oncology outpatient (recurring) (ONCR) | payer MEDICARE, OTHER, SELFPAY ==
[2024-01-10 08:43] LABS: Basophils % 0.3 %; Eosinophils # 0.1 10^3/uL (0.0-0.8); Eosinophils % 2.2 %; Hematocrit 40.7 % (36-47); Lymphocytes # 1.2 10^3/uL (0.8-4.8); Lymphocytes % 20.1 %; Mean Corpuscular HGB Conc 31.9 g/dL (30-55); Mean Corpuscular Hemoglobin 29.3 pg (27-33); Mean Corpuscular Volume 91.7 fl (85-98); Mean Platelet Volume 9.6 fL (7.4-10.4); Monocytes % 16.6 %; Neutrophils % 60.5 %; Nucleated Red Blood Cells % 0 %; Platelet Count 352 10^3/cmm (157-399); Red Blood Count 4.44 10^6/uL (3.85-5.65); Red Cell Distribution Width 18.5 % (12.1-15.1); White Blood Count 5.96 10^3/uL (3.29-11.43)
[2024-01-10 08:57] LABS: Alanine Aminotransferase 10 U/L (0-33); Albumin Level 3.7 g/dL (3.5-5.2); Alkaline Phosphatase 78 U/L (35-105); Anion Gap 14.3 (5-19); Aspartate Amino Transferase 14 U/L (0-32); Blood Urea Nitrogen 28 mg/dL (8-23); Carbon Dioxide 21 mmol/L (22-29); Chloride 110 mmol/L (98-107); Globulin 3.3 g/dL (1.3-4.6); Glucose 104 mg/dL (65-115); Osmolality Calculated 298 mOsm/kg (285-295); Potassium 4.3 mmol/L (3.5-5.1); Sodium 141 mmol/L (136-145); Total Bilirubin 0.4 mg/dL (0.15-1.2)
[2024-01-10] MEDS: acetaminophen 325 mg Tablet 650 MG PO (10:50)
[2024-01-10] MEDS: diphenhydrAMINE 25 mg Capsule PO (10:50)
[2024-01-10] MEDS: sodium chloride 0.9% 250 ML 75 ML IV (10:50)
[2024-01-10] MEDS: palonosetron 0.25 mg/5 mL SDV IVP (10:50)
[2024-01-10] MEDS: famotidine 20 mg/2 mL INJ IVP (10:51)
[2024-01-10] MEDS: dexamethasone 4 mg/mL INJ 5 mL 12 MG IV (10:52)
[2024-01-10 11:14] VITALS: BP 128/68; PULSE 56; RESP 16; TEMP 35.9; O2SAT 90
[2024-01-10] MEDS: [UNRECOGNIZED DRUG - MIXTURE] 500 MG IV (11:17)
[2024-01-10 12:00] VITALS: BP 138/68; PULSE 57; RESP 16; TEMP 36.3; O2SAT 95
== END 2024-01-10 23:59 | disposition home or self-care (01) ==
PROVIDERS: Nurse Practitioner Family; Absent Provider Internal Medicine Medical Oncology; PCP Nurse Practitioner; Visit Provider Radiology Radiation Oncology
DX: Z79.899 Other long term (current) drug therapy; C67.1 Malignant neoplasm of dome of bladder; C67.2 Malignant neoplasm of lateral wall of bladder; Z51.12 Encounter for antineoplastic immunotherapy; Z79.52 Long term (current) use of systemic steroids; G62.0 Drug-induced polyneuropathy; T45.1X5A Adverse effect of antineoplastic and immunosuppressive drugs, initial encounter
CPT/HCPCS: 80053; 85025; 96367; 96413; 99214; J1100; J2469; J3490; J7050; J9177

== ENCOUNTER 2024-01-16 11:08 | Oncology outpatient (recurring) (ONCR) | payer MEDICARE, OTHER, SELFPAY ==
--- NOTE | 2024-01-16 12:30 | CT_ITS ---
WS: [id number] CT CHEST, ABDOMEN AND PELVIS WITH CONTRAST HISTORY: restaging after cycle 4, history of bladder cancer TECHNIQUE: Contiguous 5 mm axial imaging performed through the chest, abdomen and pelvis with IV cont rast, oral contrast has been provided. Coronal and sagittal reformats chest. Coronal and sagittal ref ormats through the abdomen and pelvis. All CT scans at [facility] use at least one of these d ose optimization techniques: automated exposure control; mA and/or kV adjustment per patient size (in cludes targeted exams where dose is matched to clinical indication); or iterative reconstruction. CONTRAST: Omnipaque 350; 100 mL IV. DLP: 488.90 mGy.cm COMPARISON: 08/30/2022, 05/30/2023, PET/CT 09/26/[address]: New pulmonary nodules in opacification since the PET/CT of 09/26/2023 and prior CTs. The largest nodule measures 11 x 11 mm surrounded by groundglass attenuation in the LEFT lower lobe. Additional subpleu ral groundglass RIGHT upper lobe. Slightly spiculated opacification adjacent to the descending aorta in the LEFT lower lobe 14 x 8 mm. There are additional smaller scattered spiculated densities and opa cifications. There are a few small mediastinal and hilar lymph nodes which are less than a centimeter . Heart size remains normal. There is a small pericardial effusion versus pericardial thickening. LEFT subclavian Mediport. Atherosclerosis aorta. Normal pulmonary artery. Mild esophageal wall thicke guicho distal to the trachea. Large hiatal hernia. Increase in thoracic kyphosis. Abdomen CT: Focal fatty sparing along the falciform ligament. No metastatic lesions. Negative gallbla dder. Normal spleen. Normal pancreas. RIGHT adrenal mass reidentified measuring 3.2 x 2.5 cm. Slight nodularity of the LEFT adrenal gland. RIGHT renal cysts. Nonobstructing RIGHT renal calcifications. Normally distended stomach. No small bowel obstruction. There is a short segment of wall thickening i n the transverse colon which is very nonspecific. No mesenteric deposits are identified along the GI tract. Atherosclerosis aorta. No retroperitoneal lymph nodes are identified. Previously described PET/CT pos itive lymph node along the LEFT external iliac chain has resolved. No inguinal lymph nodes. Pelvic CT: Mildly distended urinary bladder. Mild bladder wall thickening. In the areas of the previo usly described bladder nodules there are areas of increased attenuation which may be calcification fr om treated neoplasm or postsurgical. No new or enlarging masses. Thoracic scoliosis. T10 compression fracture. No lytic or osteoblastic bone lesions. CT/CT chest abdpel w/*[id number] IMPRESSION: 1. New pulmonary spiculated nodules and opacifications since the PET/CT of 09/25. Suspicious for metastatic lung disease. 2. No mediastinal or hilar adenopathy. 3. Previously described LEFT inguinal PET/CT positive lymph node has resolved. 4. Postsurgical and posttreatment changes in the urinary bladder. No new or in creasing size of the bladder masses. 5. RIGHT adrenal mass stable and negative on PET/CT. 6. Moderate hiatal hernia. 7. RIGHT renal cysts.
[2024-01-16] MEDS: iohexol 350 mg/mL 500 mL Btl (per mL) PO (12:49)
[2024-01-16] MEDS: iohexol 350 mg/mL 500 mL Btl (per mL) IV (12:50)
== END 2024-01-17 23:59 | disposition home or self-care (01) ==
LOC: ONCMED 11:08 → RAD 11:31 → ONCMED 01-23 11:39
PROVIDERS: Absent Provider Internal Medicine Medical Oncology; PCP Nurse Practitioner; Visit Provider Radiology Radiation Oncology
DX: C67.9 Malignant neoplasm of bladder, unspecified; C67.1 Malignant neoplasm of dome of bladder; C67.2 Malignant neoplasm of lateral wall of bladder; R91.8 Other nonspecific abnormal finding of lung field; N28.89 Other specified disorders of kidney and ureter; K44.9 Diaphragmatic hernia without obstruction or gangrene; N28.1 Cyst of kidney, acquired
CPT/HCPCS: 71260; 74177; Q9967

== ENCOUNTER 2024-01-24 09:16 | Oncology outpatient (recurring) (ONCR) | payer MEDICARE, OTHER, SELFPAY ==
[2024-01-24 09:51] LABS: Basophils % 0.4 %; Eosinophils # 0.4 10^3/uL (0.0-0.8); Eosinophils % 6.1 %; Lymphocytes # 1.3 10^3/uL (0.8-4.8); Lymphocytes % 22.3 %; Mean Corpuscular HGB Conc 32.3 g/dL (30-55); Mean Corpuscular Hemoglobin 29.8 pg (27-33); Mean Corpuscular Volume 92.2 fl (85-98); Mean Platelet Volume 10.1 fL (7.4-10.4); Monocytes # 0.8 10^3/uL (0.2-0.9); Monocytes % 13.3 %; Neutrophils # 3.28 10^3/uL (1.8-7.7); Neutrophils % 57.5 %; Nucleated Red Blood Cells % 0 %; Platelet Count 384 10^3/cmm (157-399); Red Blood Count 4.23 10^6/uL (3.85-5.65); Red Cell Distribution Width 19.2 % (12.1-15.1)
[2024-01-24 10:18] LABS: Alanine Aminotransferase 12 U/L (0-33); Albumin Level 3.7 g/dL (3.5-5.2); Alkaline Phosphatase 80 U/L (35-105); Aspartate Amino Transferase 16 U/L (0-32); Blood Urea Nitrogen 35 mg/dL (8-23); Calcium 9.2 mg/dL (8.5-10.5); Carbon Dioxide 21 mmol/L (22-29); Chloride 107 mmol/L (98-107); Globulin 3.2 g/dL (1.3-4.6); Glucose 90 mg/dL (65-115); Osmolality Calculated 298 mOsm/kg (285-295); Sodium 140 mmol/L (136-145); Thyroid Stimulating Hormone 3.16 uIU/mL (0.27-4.20); Total Bilirubin 0.3 mg/dL (0.15-1.2); Total Protein 6.9 g/dL (6.6-8.7)
[2024-01-24 11:20] VITALS: BP 103/53; PULSE 55; RESP 16; TEMP 36.7; O2SAT 95
[2024-01-24] MEDS: diphenhydrAMINE 25 mg Capsule PO (11:27)
[2024-01-24] MEDS: sodium chloride 0.9% 250 ML 75 ML IV (11:27)
[2024-01-24] MEDS: acetaminophen 325 mg Tablet 650 MG PO (11:27)
[2024-01-24] MEDS: famotidine 20 mg/2 mL INJ IVP (11:28)
[2024-01-24] MEDS: dexamethasone 4 mg/mL INJ 5 mL 12 MG IVP (11:30)
[2024-01-24] MEDS: ondansetron 2 mg/ML SDV 2 mL 8 MG IVP (11:33)
[2024-01-24] MEDS: pembrolizumab 200 MG in sodium chloride 0.9% 250 ML 516 MG IV (11:48)
[2024-01-24] MEDS: [UNRECOGNIZED DRUG - MIXTURE] 500 MG IV (12:40)
[2024-01-24 13:38] VITALS: BP 107/44; PULSE 62; RESP 16; TEMP 36.3; O2SAT 93
== END 2024-01-24 23:59 | disposition home or self-care (01) ==
PROVIDERS: Absent Provider Internal Medicine Medical Oncology; PCP Nurse Practitioner; Visit Provider Radiology Radiation Oncology
DX: C67.9 Malignant neoplasm of bladder, unspecified; Z79.899 Other long term (current) drug therapy; Z51.12 Encounter for antineoplastic immunotherapy; Z79.52 Long term (current) use of systemic steroids; R53.83 Other fatigue
CPT/HCPCS: 80053; 84443; 85025; 96375; 96413; 96417; 99214; A4222; J1100; J2405; J3490; J7050; J9177; J9271

== ENCOUNTER 2024-01-31 07:42 | Oncology outpatient (recurring) (ONCR) | payer MEDICARE, OTHER, SELFPAY ==
[2024-01-31 07:58] VITALS: BP 104/62; PULSE 63; RESP 18; TEMP 36.6; O2SAT 95
[2024-01-31 08:13] VITALS: BMI 21.4
[2024-01-31 08:19] LABS: Basophils % 0.4 %; Eosinophils # 0.3 10^3/uL (0.0-0.8); Eosinophils % 5.3 %; Hematocrit 40.8 % (36-47); Lymphocytes # 1.1 10^3/uL (0.8-4.8); Lymphocytes % 21.5 %; Mean Corpuscular HGB Conc 32.4 g/dL (30-55); Mean Corpuscular Hemoglobin 29.9 pg (27-33); Mean Corpuscular Volume 92.5 fl (85-98); Mean Platelet Volume 9.7 fL (7.4-10.4); Monocytes # 0.9 10^3/uL (0.2-0.9); Neutrophils # 2.99 10^3/uL (1.8-7.7); Neutrophils % 56.2 %; Nucleated Red Blood Cells % 0 %; Platelet Count 395 10^3/cmm (157-399); Red Blood Count 4.41 10^6/uL (3.85-5.65); Red Cell Distribution Width 19.1 % (12.1-15.1); White Blood Count 5.31 10^3/uL (3.29-11.43)
[2024-01-31 08:33] LABS: Alanine Aminotransferase 10 U/L (0-33); Albumin Level 3.9 g/dL (3.5-5.2); Alkaline Phosphatase 77 U/L (35-105); Anion Gap 15.3 (5-19); Aspartate Amino Transferase 14 U/L (0-32); Blood Urea Nitrogen 30 mg/dL (8-23); Carbon Dioxide 21 mmol/L (22-29); Chloride 110 mmol/L (98-107); Creatinine Clr Calc Pharmacy 41.0383; Globulin 3.4 g/dL (1.3-4.6); Glucose 95 mg/dL (65-115); Osmolality Calculated 300 mOsm/kg (285-295); Potassium 4.3 mmol/L (3.5-5.1); Sodium 142 mmol/L (136-145); Total Bilirubin 0.4 mg/dL (0.15-1.2); Total Protein 7.3 g/dL (6.6-8.7)
[2024-01-31] MEDS: diphenhydrAMINE 25 mg Capsule PO (09:59)
[2024-01-31] MEDS: sodium chloride 0.9% 250 ML 75 ML IV (09:59)
[2024-01-31] MEDS: dexamethasone 4 mg/mL INJ 5 mL 12 MG IVP (09:59)
[2024-01-31] MEDS: acetaminophen 325 mg Tablet 650 MG PO (09:59)
[2024-01-31] MEDS: palonosetron 0.25 mg/5 mL SDV IVP (10:03)
[2024-01-31] MEDS: famotidine 20 mg/2 mL INJ IVP (10:09)
[2024-01-31] MEDS: [UNRECOGNIZED DRUG - MIXTURE] 500 MG IV (10:31)
[2024-01-31 11:14] VITALS: BP 106/52; PULSE 57; RESP 16; TEMP 36.6; O2SAT 93
== END 2024-01-31 23:59 | disposition home or self-care (01) ==
LOC: ONCMED 07:42
PROVIDERS: Absent Provider Internal Medicine Medical Oncology; PCP Nurse Practitioner; Visit Provider Radiology Radiation Oncology
DX: Z79.899 Other long term (current) drug therapy; Z51.11 Encounter for antineoplastic chemotherapy; C67.3 Malignant neoplasm of anterior wall of bladder
CPT/HCPCS: 80053; 85025; 96375; 96413; J1100; J2469; J3490; J7050; J9177

== ENCOUNTER 2024-02-14 10:37 | Oncology outpatient (recurring) (ONCR) | payer MEDICARE, OTHER, SELFPAY ==
[2024-02-14 10:59] LABS: Basophils % 0.3 %; Eosinophils # 0.4 10^3/uL (0.0-0.8); Eosinophils % 6.1 %; Hematocrit 39.6 % (36-47); Lymphocytes # 1.4 10^3/uL (0.8-4.8); Lymphocytes % 21.4 %; Mean Corpuscular HGB Conc 32.1 g/dL (30-55); Mean Corpuscular Hemoglobin 29.7 pg (27-33); Mean Corpuscular Volume 92.7 fl (85-98); Mean Platelet Volume 9.8 fL (7.4-10.4); Monocytes # 0.8 10^3/uL (0.2-0.9); Monocytes % 12.2 %; Neutrophils # 3.81 10^3/uL (1.8-7.7); Neutrophils % 59.7 %; Nucleated Red Blood Cells % 0 %; Platelet Count 373 10^3/cmm (157-399); Red Blood Count 4.27 10^6/uL (3.85-5.65); Red Cell Distribution Width 19.2 % (12.1-15.1); White Blood Count 6.39 10^3/uL (3.29-11.43)
[2024-02-14 11:36] LABS: Alanine Aminotransferase 12 U/L (0-33); Alkaline Phosphatase 84 U/L (35-105); Anion Gap 16.7 (5-19); Aspartate Amino Transferase 17 U/L (0-32); Blood Urea Nitrogen 34 mg/dL (8-23); Calcium 9.4 mg/dL (8.5-10.5); Carbon Dioxide 21 mmol/L (22-29); Chloride 105 mmol/L (98-107); Globulin 3.3 g/dL (1.3-4.6); Glucose 90 mg/dL (65-115); Osmolality Calculated 293 mOsm/kg (285-295); Potassium 4.7 mmol/L (3.5-5.1); Sodium 138 mmol/L (136-145); Total Bilirubin 0.3 mg/dL (0.15-1.2); Total Protein 7.3 g/dL (6.6-8.7)
[2024-02-14] MEDS: sodium chloride 0.9% 250 ML 75 ML IV (12:58)
[2024-02-14] MEDS: acetaminophen 325 mg Tablet 650 MG PO (12:59)
[2024-02-14] MEDS: diphenhydrAMINE 25 mg Capsule PO (13:00)
[2024-02-14] MEDS: famotidine 20 mg/2 mL INJ IVP (13:00)
[2024-02-14] MEDS: ondansetron 2 mg/ML SDV 2 mL 8 MG IVP (13:04)
[2024-02-14] MEDS: dexamethasone 4 mg/mL INJ 5 mL 12 MG IVP (13:08)
[2024-02-14] MEDS: pembrolizumab 200 MG in sodium chloride 0.9% 250 ML 516 MG IV (13:29)
[2024-02-14] MEDS: [UNRECOGNIZED DRUG - MIXTURE] 500 MG IV (14:04)
[2024-02-14 14:47] VITALS: BP 110/69; PULSE 59; RESP 18; TEMP 36.3; O2SAT 94
[2024-02-14 16:58] LABS: Magnesium 2.2 mg/dL (1.7-2.3)
== END 2024-02-14 23:59 | disposition home or self-care (01) ==
PROVIDERS: Nurse Practitioner Family; Absent Provider Internal Medicine Medical Oncology; PCP Nurse Practitioner; Visit Provider Radiology Radiation Oncology
DX: C67.9 Malignant neoplasm of bladder, unspecified; Z79.899 Other long term (current) drug therapy; C67.1 Malignant neoplasm of dome of bladder; C67.2 Malignant neoplasm of lateral wall of bladder; Z51.12 Encounter for antineoplastic immunotherapy
CPT/HCPCS: 80053; 83735; 84443; 85025; 96367; 96413; 96417; 99214; A4222; J1100; J2405; J3490; J7050; J9177; J9271

== ENCOUNTER 2024-02-21 09:48 | Oncology outpatient (recurring) (ONCR) | payer MEDICARE, OTHER, SELFPAY ==
[2024-02-21 11:00] VITALS: BP 122/78; PULSE 72; RESP 16; TEMP 36.1; O2SAT 93
[2024-02-21] MEDS: sodium chloride 0.9% 250 ML 75 ML IV (11:01)
[2024-02-21] MEDS: famotidine 20 mg/2 mL INJ IVP (11:01)
[2024-02-21] MEDS: acetaminophen 325 mg Tablet 650 MG PO (11:01)
[2024-02-21] MEDS: diphenhydrAMINE 25 mg Capsule PO (11:02)
[2024-02-21] MEDS: palonosetron 0.25 mg/5 mL SDV IVP (11:04)
[2024-02-21] MEDS: dexamethasone 4 mg/mL INJ 5 mL 12 MG IVP (11:07)
[2024-02-21] MEDS: [UNRECOGNIZED DRUG - MIXTURE] 500 MG IV (11:30)
[2024-02-21 12:16] VITALS: BP 132/78; PULSE 63; RESP 16; TEMP 36.4; O2SAT 92
== END 2024-02-21 23:59 | disposition home or self-care (01) ==
LOC: ONCMED 09:48
PROVIDERS: Absent Provider Internal Medicine Medical Oncology; PCP Nurse Practitioner; Visit Provider Radiology Radiation Oncology
DX: D41.4 Neoplasm of uncertain behavior of bladder (principal); C67.9 Malignant neoplasm of bladder, unspecified; N28.1 Cyst of kidney, acquired; J44.9 Chronic obstructive pulmonary disease, unspecified; Z53.9 Procedure and treatment not carried out, unspecified reason; Z79.899 Other long term (current) drug therapy; C67.1 Malignant neoplasm of dome of bladder; C67.2 Malignant neoplasm of lateral wall of bladder
CPT/HCPCS: 96375; 96413; J1100; J2469; J3490; J7050; J9177

== ENCOUNTER 2024-03-06 09:13 | Oncology outpatient (recurring) (ONCR) | payer MEDICARE, OTHER, SELFPAY ==
[2024-03-06 09:48] LABS: Basophils % 0.2 %; Eosinophils # 0.3 10^3/uL (0.0-0.8); Hematocrit 39.2 % (36-47); Lymphocytes # 1.3 10^3/uL (0.8-4.8); Lymphocytes % 23.3 %; Mean Corpuscular HGB Conc 32.1 g/dL (30-55); Mean Corpuscular Hemoglobin 30.3 pg (27-33); Mean Corpuscular Volume 94.2 fl (85-98); Mean Platelet Volume 9.6 fL (7.4-10.4); Monocytes # 0.7 10^3/uL (0.2-0.9); Monocytes % 13.4 %; Neutrophils # 3.16 10^3/uL (1.8-7.7); Neutrophils % 56.9 %; Nucleated Red Blood Cells % 0 %; Platelet Count 385 10^3/cmm (157-399); Red Blood Count 4.16 10^6/uL (3.85-5.65); Red Cell Distribution Width 19.1 % (12.1-15.1); White Blood Count 5.54 10^3/uL (3.29-11.43)
[2024-03-06 10:16] LABS: Alanine Aminotransferase 12 U/L (0-33); Albumin Level 3.8 g/dL (3.5-5.2); Alkaline Phosphatase 81 U/L (35-105); Anion Gap 15.6 (5-19); Aspartate Amino Transferase 17 U/L (0-32); Blood Urea Nitrogen 31 mg/dL (8-23); Carbon Dioxide 23 mmol/L (22-29); Chloride 106 mmol/L (98-107); Globulin 3.2 g/dL (1.3-4.6); Glucose 98 mg/dL (65-115); Osmolality Calculated 297 mOsm/kg (285-295); Potassium 4.6 mmol/L (3.5-5.1); Sodium 140 mmol/L (136-145); Thyroid Stimulating Hormone 1.68 uIU/mL (0.27-4.20); Total Bilirubin 0.4 mg/dL (0.15-1.2)
[2024-03-06 11:37] VITALS: BP 125/75; PULSE 61; RESP 18; TEMP 36.6; O2SAT 95
[2024-03-06] MEDS: acetaminophen 325 mg Tablet 650 MG PO (11:45)
[2024-03-06] MEDS: diphenhydrAMINE 25 mg Capsule PO (11:46)
[2024-03-06] MEDS: sodium chloride 0.9% 250 ML 75 ML IV (11:47)
[2024-03-06] MEDS: famotidine 20 mg/2 mL INJ IVP (11:52)
[2024-03-06] MEDS: ondansetron 2 mg/ML SDV 2 mL 8 MG IVP (11:54)
[2024-03-06] MEDS: dexamethasone 4 mg/mL INJ 5 mL 12 MG IVP (11:57)
[2024-03-06] MEDS: pembrolizumab 200 MG in sodium chloride 0.9% 250 ML 516 MG IV (12:24)
[2024-03-06] MEDS: [UNRECOGNIZED DRUG - MIXTURE] 500 MG IV (13:11)
[2024-03-06 14:05] VITALS: BP 117/71; PULSE 61; RESP 16; TEMP 36.6; O2SAT 97
== END 2024-03-06 23:59 | disposition home or self-care (01) ==
PROVIDERS: Nurse Practitioner Family; Absent Provider Internal Medicine Medical Oncology; PCP Nurse Practitioner; Visit Provider Radiology Radiation Oncology
DX: C67.1 Malignant neoplasm of dome of bladder; C67.2 Malignant neoplasm of lateral wall of bladder; Z51.12 Encounter for antineoplastic immunotherapy; Z79.899 Other long term (current) drug therapy; Z79.52 Long term (current) use of systemic steroids
CPT/HCPCS: 80053; 84443; 85025; 96375; 96413; 96417; 99214; A4222; J1100; J2405; J3490; J7050; J9177; J9271

== ENCOUNTER 2024-03-13 11:03 | Oncology outpatient (recurring) (ONCR) | payer MEDICARE, OTHER, SELFPAY ==
[2024-03-13 11:18] VITALS: BP 116/74; PULSE 53; RESP 16; TEMP 36.3; O2SAT 93; BMI 21.5
[2024-03-13] MEDS: sodium chloride 0.9% 250 ML 75 ML IV (11:36)
[2024-03-13] MEDS: acetaminophen 325 mg Tablet 650 MG PO (11:36)
[2024-03-13] MEDS: diphenhydrAMINE 25 mg Capsule PO (11:37)
[2024-03-13] MEDS: palonosetron 0.25 mg/5 mL SDV IVP (11:38)
[2024-03-13] MEDS: famotidine 20 mg/2 mL INJ IVP (11:40)
[2024-03-13] MEDS: dexamethasone 4 mg/mL INJ 5 mL 12 MG IVP (11:41)
[2024-03-13] MEDS: [UNRECOGNIZED DRUG - MIXTURE] 500 MG IV (12:17)
[2024-03-13 12:55] VITALS: BP 114/62; PULSE 58; RESP 16; TEMP 36.2; O2SAT 96
== END 2024-03-13 23:59 | disposition home or self-care (01) ==
LOC: ONCMED 11:04
PROVIDERS: Absent Provider Internal Medicine Medical Oncology; PCP Nurse Practitioner; Visit Provider Radiology Radiation Oncology
DX: Z79.899 Other long term (current) drug therapy; C67.1 Malignant neoplasm of dome of bladder; C67.2 Malignant neoplasm of lateral wall of bladder; Z51.11 Encounter for antineoplastic chemotherapy; Z79.52 Long term (current) use of systemic steroids
CPT/HCPCS: 96375; 96413; J1100; J2469; J3490; J7050; J9177

== ENCOUNTER 2024-03-27 10:45 | Oncology outpatient (recurring) (ONCR) | payer MEDICARE, OTHER, SELFPAY ==
[2024-03-27 10:58] LABS: Basophils % 0.4 %; Eosinophils # 0.4 10^3/uL (0.0-0.8); Eosinophils % 8.1 %; Hematocrit 40.8 % (36-47); Lymphocytes # 1.2 10^3/uL (0.8-4.8); Lymphocytes % 22.8 %; Mean Corpuscular HGB Conc 32.1 g/dL (30-55); Mean Corpuscular Hemoglobin 30.8 pg (27-33); Mean Corpuscular Volume 95.8 fl (85-98); Monocytes # 0.7 10^3/uL (0.2-0.9); Monocytes % 12.7 %; Neutrophils # 3.03 10^3/uL (1.8-7.7); Neutrophils % 55.6 %; Nucleated Red Blood Cells % 0 %; Platelet Count 357 10^3/cmm (157-399); Red Blood Count 4.26 10^6/uL (3.85-5.65); Red Cell Distribution Width 18.7 % (12.1-15.1); White Blood Count 5.44 10^3/uL (3.29-11.43)
[2024-03-27 11:29] LABS: Alanine Aminotransferase 11 U/L (0-33); Alkaline Phosphatase 83 U/L (35-105); Anion Gap 11.6 (5-19); Aspartate Amino Transferase 18 U/L (0-32); Blood Urea Nitrogen 22 mg/dL (8-23); Carbon Dioxide 22 mmol/L (22-29); Chloride 108 mmol/L (98-107); Globulin 3.2 g/dL (1.3-4.6); Glucose 103 mg/dL (65-115); Osmolality Calculated 288 mOsm/kg (285-295); Potassium 4.6 mmol/L (3.5-5.1); Sodium 137 mmol/L (136-145); Thyroid Stimulating Hormone 1.33 uIU/mL (0.27-4.20); Total Bilirubin 0.4 mg/dL (0.15-1.2); Total Protein 7.2 g/dL (6.6-8.7)
[2024-03-27] MEDS: sodium chloride 0.9% 250 ML 75 ML IV (13:35)
[2024-03-27] MEDS: diphenhydrAMINE 25 mg Capsule PO (13:36)
[2024-03-27] MEDS: acetaminophen 325 mg Tablet 650 MG PO (13:36)
[2024-03-27] MEDS: dexamethasone 4 mg/mL INJ 5 mL 12 MG IVP (13:38)
[2024-03-27] MEDS: famotidine 20 mg/2 mL INJ IVP (13:46)
[2024-03-27] MEDS: ondansetron 2 mg/ML SDV 2 mL 8 MG IVP (13:49)
[2024-03-27] MEDS: pembrolizumab 200 MG in sodium chloride 0.9% 250 ML 516 MG IV (14:09)
[2024-03-27] MEDS: [UNRECOGNIZED DRUG - MIXTURE] 500 MG IV (14:46)
[2024-03-27 15:35] VITALS: BP 140/81; PULSE 60; RESP 18; TEMP 35.8; O2SAT 97
== END 2024-03-27 23:59 | disposition home or self-care (01) ==
PROVIDERS: Nurse Practitioner Family; Absent Provider Internal Medicine Medical Oncology; PCP Nurse Practitioner; Visit Provider Radiology Radiation Oncology
DX: Z79.899 Other long term (current) drug therapy; C67.1 Malignant neoplasm of dome of bladder; C67.2 Malignant neoplasm of lateral wall of bladder; Z53.9 Procedure and treatment not carried out, unspecified reason; Z51.11 Encounter for antineoplastic chemotherapy; Z51.12 Encounter for antineoplastic immunotherapy; Z79.52 Long term (current) use of systemic steroids
CPT/HCPCS: 80053; 84443; 85025; 96375; 96413; 96417; 99214; A4222; J1100; J2405; J3490; J7050; J9177; J9271

== ENCOUNTER 2024-04-03 12:23 | Oncology outpatient (recurring) (ONCR) | payer MEDICARE, OTHER, SELFPAY ==
[2024-04-03 13:15] VITALS: BP 149/71; PULSE 78; RESP 16; TEMP 36.9
[2024-04-03] MEDS: sodium chloride 0.9% 250 ML 75 ML IV (14:27)
[2024-04-03] MEDS: acetaminophen 325 mg Tablet 650 MG PO (14:28)
[2024-04-03] MEDS: diphenhydrAMINE 25 mg Capsule PO (14:28)
[2024-04-03] MEDS: palonosetron 0.25 mg/5 mL SDV IVP (14:29)
[2024-04-03] MEDS: famotidine 20 mg/2 mL INJ IVP (14:30)
[2024-04-03] MEDS: dexamethasone 4 mg/mL INJ 5 mL 12 MG IVP (14:32)
[2024-04-03] MEDS: [UNRECOGNIZED DRUG - MIXTURE] 500 MG IV (15:05)
[2024-04-03 15:45] VITALS: BP 124/61; PULSE 63; RESP 16; TEMP 36.8
== END 2024-04-03 23:59 | disposition home or self-care (01) ==
PROVIDERS: Absent Provider Internal Medicine Medical Oncology; PCP Nurse Practitioner; Visit Provider Radiology Radiation Oncology
DX: Z51.11 Encounter for antineoplastic chemotherapy; C79.89 Secondary malignant neoplasm of other specified sites; Z79.899 Other long term (current) drug therapy; C67.9 Malignant neoplasm of bladder, unspecified
CPT/HCPCS: 96375; 96413; J1100; J2469; J3490; J7050; J9177

== ENCOUNTER 2024-04-17 11:00 | Oncology outpatient (recurring) (ONCR) | payer MEDICARE, OTHER, SELFPAY ==
[2024-04-10] MEDS: iohexol 350 mg/mL 500 mL Btl (per mL) PO (10:42)
[2024-04-10] MEDS: iohexol 350 mg/mL 500 mL Btl (per mL) IV (10:52)
--- NOTE | 2024-04-10 11:00 | CTR_ITS ---
PROCEDURE INFORMATION: Exam: CT Chest With Contrast; Diagnostic Exam date and time: 04/10/2024 10:47 AM Age: 78 years old Clinical indication: Condition or disease; Other: Bladder cancer; Prior surgery; Surgery date: 6+ months; Surgery type: Port placement, tubal ligation; Patient HX: Bladder CA, chemo ending 1 wk ago; Additional info: Followup post treat, compare to 12/2023 imagng TECHNIQUE: Imaging protocol: Diagnostic computed tomography of the chest with contrast. Radiation optimization: All CT scans at this facility use at least one of these dose optimization techniques: automated exposure control; mA and/or kV adjustment per patient size (includes targeted exams where dose is matched to clinical indication); or iterative reconstruction. Contrast material: OMNI 350; Contrast volume: 100 ml; Contrast route: INTRAVENOUS (IV); COMPARISON: CT chest abdpel w/*[id number] 01/16/2024 12:41 PM RADIATION DOSE METRICS: Total DLP (mGy-cm): 472.05 FINDINGS: Thyroid: Unchanged subcentimeter right thyroid lobe hypodensity, possibly a colloid cyst or nodule. Consider correlation with thyroid function tests and follow-up outpatient thyroid ultrasound. Lungs: Severe emphysematous changes with right upper lobe scarring/atelectasis. Nodular atelectasis is noted in the medial left apex, unchanged and PET-CT negative. A previously visualized left lower lobe pulmonary nodule has essentially entirely resolved, which may reflect treatment response. Multiple scattered 1-2 mm pulmonary nodules and nodular opacities in both lungs are grossly unchanged and not clearly indicative of metastases. Irregular opacity in the medial left lower lobe adjacent to the descending thoracic aorta has partially improved since prior. No focal consolidation. Pleural spaces: No pleural effusion. No pneumothorax. Heart: No cardiomegaly. No pericardial effusion. Mediastinal space: Trachea and central airways are grossly patent. Moderate hiatal hernia with the GE junction and a portion of the gastric body above the diaphragm. Left-sided MediPort in place with tip in the distal SVC. Lymph nodes: No evidence of mediastinal or hilar adenopathy. Vasculature: No aneurysmal dilatation of the thoracic aorta. No evidence of dissection. Though this study is not tailored to evaluate for pulmonary thromboembolism, there is no evidence of PE within limitations of respiratory motion. Bones/joints: No evidence of acute fracture or aggressive osseous lesion. Soft tissues: No fluid collection or hematoma in the superficial soft tissues. PROCEDURE INFORMATION: Exam: CT Abdomen And Pelvis With Contrast Exam date and time: 04/10/2024 10:47 AM Age: 78 years old Clinical indication: Condition or disease; Other: Bladder cancer; Prior surgery; Surgery date: 6+ months; Surgery type: Port placement, tubal ligation; Patient HX: Bladder CA, chemo ending 1 wk ago; Additional info: Followup post treat, compare to 12/2023 imagng TECHNIQUE: Imaging protocol: Computed tomography of the abdomen and pelvis with contrast. Radiation optimization: All CT scans at this facility use at least one of these dose optimization techniques: automated exposure control; mA and/or kV adjustment per patient size (includes targeted exams where dose is matched to clinical indication); or iterative reconstruction. Contrast material: OMNI 350; Contrast volume: 100 ml; Contrast route: INTRAVENOUS (IV); COMPARISON: CT chest abdpel w/*[id number] 01/16/2024 12:41 PM RADIATION DOSE METRICS: Total DLP (mGy-cm): 472.05 FINDINGS: Diaphragm: Moderate hiatal hernia with the GE junction and a portion of the gastric body above the diaphragm. Liver: Hepatic steatosis. No evidence of focal hepatic lesion. Subcentimeter right hepatic lobe hypodensity, not significantly changed since prior, likely a cyst. Gallbladder and biliary ducts: Unremarkable. No intra-hepatic or extra-hepatic biliary dilatation. Pancreas: Unremarkable. Spleen: Unremarkable. Adrenal glands: 3.4 cm lipid rich adenoma on the right. Adrenal glands are otherwise unremarkable. Kidneys and ureters: There are simple appearing renal cysts for which dedicated imaging follow-up is not required. Otherwise no evidence of renal parenchymal abnormality. No hydronephrosis or ureteral stone. Stomach and bowel: No evidence of bowel obstruction or perienteric inflammatory changes. Appendix: Normal appendix. Intraperitoneal space: No evidence of free air or fluid collection. Vasculature: Moderate aortobiiliac atherosclerosis without aneurysmal dilatation or dissection. The celiac trunk, SMA and BAM are grossly patent. Mild-moderate narrowing of the proximal celiac trunk and to a lesser extent the SMA secondary to atherosclerotic plaque. Consider follow-up outpatient vascular evaluatiion. No evidence of IVC thrombus. The portal vein, SMV and splenic veins are grossly patent. Lymph nodes: No adenopathy. Urinary bladder: Posttreatment changes of the bladder, not significantly changed since December 2023. No evidence of new or enlarging lesion. Reproductive: Grossly unremarkable. Bones/joints: No evidence of acute fracture or aggressive osseous lesion. Old right inferior pubic ramus fracture. Soft tissues: No evidence of fluid collection or hematoma in the superficial soft tissues. CT/CT chest abdpel w/*[id number] IMPRESSION: 1. Essentially complete resolution of the previously visualized 11 mm left lower lobe pulmonary nodule, which may reflect treatment response. No new or enlarging nodules. 2. No adenopathy. 3. Severe emphysematous changes. The presence of pulmonary emphysema on CT is an independent risk factor for lung cancer. In the absence of a history or active diagnosis of lung cancer, it is recommended that this patient with emphysema be evaluated for enrollment in a low dose CT lung cancer screening program. IMPRESSION: 1. No evidence of metastatic disease in the abdomen or pelvis.
[2024-04-17 10:59] LABS: Basophils % 0.2 %; Eosinophils # 0.2 10^3/uL (0.0-0.8); Eosinophils % 4.4 %; Hematocrit 38.4 % (36-47); Lymphocytes # 1.2 10^3/uL (0.8-4.8); Lymphocytes % 21.8 %; Mean Corpuscular Hemoglobin 30.1 pg (27-33); Mean Corpuscular Volume 93.9 fl (85-98); Mean Platelet Volume 9.6 fL (7.4-10.4); Monocytes # 0.7 10^3/uL (0.2-0.9); Monocytes % 12.5 %; Neutrophils # 3.32 10^3/uL (1.8-7.7); Neutrophils % 60.7 %; Nucleated Red Blood Cells % 0 %; Platelet Count 381 10^3/cmm (157-399); Red Blood Count 4.09 10^6/uL (3.85-5.65); Red Cell Distribution Width 18.3 % (12.1-15.1); White Blood Count 5.46 10^3/uL (3.29-11.43)
[2024-04-17 11:32] LABS: Alanine Aminotransferase 12 U/L (0-33); Albumin Level 3.6 g/dL (3.5-5.2); Alkaline Phosphatase 79 U/L (35-105); Anion Gap 13.2 (5-19); Aspartate Amino Transferase 14 U/L (0-32); Blood Urea Nitrogen 24 mg/dL (8-23); Calcium 8.6 mg/dL (8.5-10.5); Carbon Dioxide 23 mmol/L (22-29); Chloride 107 mmol/L (98-107); Creatinine Clr Calc Pharmacy 46.2293; Globulin 2.9 g/dL (1.3-4.6); Glucose 84 mg/dL (65-115); Osmolality Calculated 291 mOsm/kg (285-295); Potassium 4.2 mmol/L (3.5-5.1); Sodium 139 mmol/L (136-145); Thyroid Stimulating Hormone 2.69 uIU/mL (0.27-4.20); Total Bilirubin 0.3 mg/dL (0.15-1.2); Total Protein 6.5 g/dL (6.6-8.7); Vitamin B12 304 pg/mL (232-1245)
[2024-04-17] MEDS: sodium chloride 0.9% 250 ML 75 ML IV (13:26)
[2024-04-17] MEDS: famotidine 20 mg/2 mL INJ IVP (13:28)
[2024-04-17] MEDS: diphenhydrAMINE 25 mg Capsule PO (13:29)
[2024-04-17] MEDS: acetaminophen 325 mg Tablet 650 MG PO (13:29)
[2024-04-17] MEDS: ondansetron 2 mg/ML SDV 2 mL 8 MG IVP (13:31)
[2024-04-17] MEDS: dexamethasone 4 mg/mL INJ 5 mL 12 MG IVP (13:36)
[2024-04-17] MEDS: pembrolizumab 200 MG in sodium chloride 0.9% 250 ML 516 MG IV (13:43)
[2024-04-17] MEDS: [UNRECOGNIZED DRUG - MIXTURE] 500 MG IV (14:28)
[2024-04-17 15:15] VITALS: BP 157/75; PULSE 61; RESP 18; TEMP 35.8; O2SAT 95
== END 2024-04-17 23:59 | disposition home or self-care (01) ==
PROVIDERS: Nurse Practitioner; Absent Provider Internal Medicine Hematology & Oncology; PCP Nurse Practitioner; Visit Provider Radiology Radiation Oncology
DX: Z51.12 Encounter for antineoplastic immunotherapy; C67.9 Malignant neoplasm of bladder, unspecified; D41.4 Neoplasm of uncertain behavior of bladder; N28.1 Cyst of kidney, acquired; J44.9 Chronic obstructive pulmonary disease, unspecified; Z79.899 Other long term (current) drug therapy; Z79.620 Long term (current) use of immunosuppressive biologic; Z79.52 Long term (current) use of systemic steroids; Z53.9 Procedure and treatment not carried out, unspecified reason
CPT/HCPCS: 71260; 74177; 80053; 82607; 84443; 85025; 96375; 96413; 96417; 96523; 99214; A4222; J1100; J2405; J3490; J7050; J9177; J9271

== ENCOUNTER 2024-04-24 09:11 | Oncology outpatient (recurring) (ONCR) | payer MEDICARE, OTHER, SELFPAY ==
[2024-04-24 09:31] VITALS: BP 129/73; PULSE 65; RESP 16; TEMP 36.6; O2SAT 98
[2024-04-24] MEDS: acetaminophen 325 mg Tablet 650 MG PO (10:03)
[2024-04-24] MEDS: diphenhydrAMINE 25 mg Capsule PO (10:03)
[2024-04-24] MEDS: sodium chloride 0.9% 250 ML 75 ML IV (10:04)
[2024-04-24] MEDS: dexamethasone 4 mg/mL INJ 5 mL 12 MG IVP (10:07)
[2024-04-24] MEDS: palonosetron 0.25 mg/5 mL SDV IVP (10:12)
[2024-04-24] MEDS: famotidine 20 mg/2 mL INJ IVP (10:16)
[2024-04-24] MEDS: [UNRECOGNIZED DRUG - MIXTURE] 500 MG IV (10:44)
[2024-04-24 11:27] VITALS: BP 116/58; PULSE 66; RESP 16; TEMP 36.4; O2SAT 94
== END 2024-04-24 23:59 | disposition home or self-care (01) ==
LOC: ONCMED 09:11
PROVIDERS: Absent Provider Internal Medicine Hematology & Oncology; PCP Nurse Practitioner; Visit Provider Radiology Radiation Oncology
DX: Z51.11 Encounter for antineoplastic chemotherapy; C67.8 Malignant neoplasm of overlapping sites of bladder; Z79.899 Other long term (current) drug therapy
CPT/HCPCS: 96375; 96413; J1100; J2469; J3490; J7050; J9177

== ENCOUNTER 2024-05-08 09:10 | Oncology outpatient (recurring) (ONCR) | payer MEDICARE, OTHER, SELFPAY ==
[2024-05-08 09:38] LABS: Basophils % 0.5 %; Eosinophils # 0.4 10^3/uL (0.0-0.8); Eosinophils % 5.6 %; Lymphocytes # 1.2 10^3/uL (0.8-4.8); Lymphocytes % 19.2 %; Mean Corpuscular HGB Conc 31.3 g/dL (30-55); Mean Corpuscular Hemoglobin 29.4 pg (27-33); Mean Platelet Volume 10.2 fL (7.4-10.4); Monocytes # 0.7 10^3/uL (0.2-0.9); Monocytes % 10.8 %; Neutrophils # 4.01 10^3/uL (1.8-7.7); Neutrophils % 63.7 %; Nucleated Red Blood Cells % 0 %; Platelet Count 370 10^3/cmm (157-399); Red Blood Count 4.15 10^6/uL (3.85-5.65); Red Cell Distribution Width 18.3 % (12.1-15.1); White Blood Count 6.29 10^3/uL (3.29-11.43)
[2024-05-08 10:02] LABS: Alanine Aminotransferase 12 U/L (0-33); Albumin Level 3.9 g/dL (3.5-5.2); Alkaline Phosphatase 87 U/L (35-105); Anion Gap 14.7 (5-19); Aspartate Amino Transferase 16 U/L (0-32); Blood Urea Nitrogen 23 mg/dL (8-23); Calcium 8.4 mg/dL (8.5-10.5); Carbon Dioxide 23 mmol/L (22-29); Chloride 107 mmol/L (98-107); Creatinine Clr Calc Pharmacy 46.3316; Glucose 88 mg/dL (65-115); Osmolality Calculated 293 mOsm/kg (285-295); Potassium 4.7 mmol/L (3.5-5.1); Sodium 140 mmol/L (136-145); Total Bilirubin 0.3 mg/dL (0.15-1.2); Total Protein 6.9 g/dL (6.6-8.7)
[2024-05-08 12:00] VITALS: BP 122/78; PULSE 74; RESP 18; TEMP 36.6; O2SAT 97
== END 2024-05-18 23:59 | disposition home or self-care (01) ==
PROVIDERS: Nurse Practitioner Family; Absent Provider Internal Medicine Hematology & Oncology; PCP Nurse Practitioner; Visit Provider Radiology Radiation Oncology
DX: C67.9 Malignant neoplasm of bladder, unspecified; Z87.891 Personal history of nicotine dependence; Z79.899 Other long term (current) drug therapy; C67.1 Malignant neoplasm of dome of bladder; C67.2 Malignant neoplasm of lateral wall of bladder; G62.0 Drug-induced polyneuropathy; T45.1X5A Adverse effect of antineoplastic and immunosuppressive drugs, initial encounter; D64.9 Anemia, unspecified; Z95.828 Presence of other vascular implants and grafts
CPT/HCPCS: 80053; 84443; 85025; 99213

== ENCOUNTER 2024-06-05 10:39 | Oncology outpatient (recurring) (ONCR) | payer MEDICARE, OTHER, SELFPAY | END 2024-06-18 23:59 | disposition home or self-care (01) | PROVIDERS: Absent Provider Internal Medicine Hematology & Oncology; PCP Nurse Practitioner; Visit Provider Radiology Radiation Oncology | DX: Z45.2 Encounter for adjustment and management of vascular access device | CPT/HCPCS: 96523 ==

== ENCOUNTER 2024-07-17 11:30 | Oncology outpatient (recurring) (ONCR) | payer MEDICARE, OTHER, SELFPAY ==
[2024-07-10] MEDS: iohexol 350 mg/mL 500 mL Btl (per mL) PO (13:30)
[2024-07-10 14:00] LABS: Blood Urea Nitrogen 26 mg/dL (8-23)
--- NOTE | 2024-07-10 14:00 | CT_ITS ---
WS: [id number] CT CHEST, ABDOMEN AND PELVIS WITH CONTRAST HISTORY: urothelial carcinoma of bladder with invasion of muscle TECHNIQUE: Contiguous 5 mm axial imaging performed through the chest, abdomen and pelvis with IV cont rast, oral contrast has been provided. Coronal and sagittal reformats chest. Coronal and sagittal ref ormats through the abdomen and pelvis. All CT scans at [facility] use at least one of these d ose optimization techniques: automated exposure control; mA and/or kV adjustment per patient size (in cludes targeted exams where dose is matched to clinical indication); or iterative reconstruction. CONTRAST: Omnipaque 350; 100 mL IV. DLP: 462.56 mGy.cm COMPARISON: 08/30/2022, 05/30/2023, 04/10/[address]: Severe emphysematous changes. Linear scarring and nodularity at the lung apices. New focal linear scar along the anterior RIGHT upper lobe adjacent to the fissure. Slight improvement in the op acification along the medial LEFT lower lobe just posterior to the hilum. No new or enlarging masses or nodules. No pericardial or pleural effusions. Heart size is normal. No mediastinal or hilar adenop athy. Largest lymph node is 9 mm at the RIGHT hilum. Mild atherosclerosis aorta. Normal size pulmonar y artery. LEFT subclavian Mediport. Subcentimeter nodule LEFT thyroid. Moderate size hiatal hernia. Abdomen CT: No metastatic disease in the liver. Stable 5 mm low-attenuation nodule in the central RIG HT lobe. Normal portal vein. Normal gallbladder. No spleen abnormality. Normal pancreas. RIGHT adrena l mass 3.3 x 2.8 cm is PET/CT negative and thought to be an adenoma. LEFT adrenal gland is normal. Mi ld atherosclerotic plaque abdominal aorta. Plaque continues into the iliac arteries. No mesenteric ar vivienne stenosis or thrombus. Bilateral renal cysts. No renal obstruction. Stomach is distended with oral contrast. No small bowel obstruction. Moderate diffuse constipation. N ormal appendix. No colitis or obstruction. Pelvic CT: No free fluid or adenopathy. Urinary bladder is not distended. Bladder is completely empty therefore limited evaluation of the wall. No pelvic lymphadenopathy. Previously described PET/CT pos itive lymph nodes have resolved or significantly decreased in size. No destructive bone metastasis. Healed fracture inferior RIGHT pubic rami. CT/CT chest abdpel w/*[id number] IMPRESSION: 1. Severe emphysema. Stable scarring in the upper lung ornelas. There are no ne w or increasing size of any of the pulmonary nodules. 2. No mediastinal or hilar adenopathy. 3. No metastatic disease to the liver. 4. Long-term stability RIGHT adrenal mass, PET/CT positive and imaging consist ent with an adenoma. 5. Urinary bladder is not distended. Cannot evaluate for recurrent uroepitheli al lesions. 6. Previously described pelvic lymphadenopathy which was PET/CT positive is ei ther significantly decreased in size or resolved. No suspicious lymph nodes.
[2024-07-10] MEDS: iohexol 350 mg/mL 500 mL Btl (per mL) IV (14:13)
[2024-07-17 11:32] LABS: Basophils % 0.1 %; Eosinophils # 0.2 10^3/uL (0.0-0.8); Eosinophils % 3.1 %; Hematocrit 41.6 % (36-47); Lymphocytes # 1.5 10^3/uL (0.8-4.8); Lymphocytes % 21.2 %; Mean Corpuscular HGB Conc 31.3 g/dL (30-55); Mean Corpuscular Hemoglobin 28.8 pg (27-33); Mean Corpuscular Volume 92.2 fl (85-98); Mean Platelet Volume 9.8 fL (7.4-10.4); Monocytes # 0.6 10^3/uL (0.2-0.9); Monocytes % 8.8 %; Neutrophils # 4.67 10^3/uL (1.8-7.7); Neutrophils % 66.7 %; Nucleated Red Blood Cells % 0 %; Platelet Count 342 10^3/cmm (157-399); Red Blood Count 4.51 10^6/uL (3.85-5.65); Red Cell Distribution Width 15.2 % (12.1-15.1); White Blood Count 7.02 10^3/uL (3.29-11.43)
[2024-07-17 11:36] LABS: Reticulocyte % 1.2 % (0.5-2.0)
[2024-07-17 11:55] LABS: Alanine Aminotransferase 9 U/L (0-33); Albumin Level 3.8 g/dL (3.5-5.2); Alkaline Phosphatase 87 U/L (35-105); Anion Gap 12.6 (5-19); Aspartate Amino Transferase 13 U/L (0-32); Blood Urea Nitrogen 22 mg/dL (8-23); Calcium 9.6 mg/dL (8.5-10.5); Carbon Dioxide 25 mmol/L (22-29); Chloride 107 mmol/L (98-107); Ferritin 31 ng/mL (15-150); Globulin 3.4 g/dL (1.3-4.6); Glucose 90 mg/dL (65-115); Iron 77 ug/dL (37-145); Osmolality Calculated 293 mOsm/kg (285-295); Percent Saturation 21.9 % (20-50); Potassium 4.6 mmol/L (3.5-5.1); Sodium 140 mmol/L (136-145); Total Bilirubin 0.3 mg/dL (0.15-1.2); Total Iron Binding Capacity 351 mcg/dl; Total Protein 7.2 g/dL (6.6-8.7); Unsaturated Iron Binding 274 ug/dL (112-347)
[2024-07-17 12:09] LABS: Vitamin B12 279 pg/mL (232-1245)
[2024-07-17 12:18] LABS: Folate Level 10.8 ng/mL (4.8-37.3)
== END 2024-07-19 23:59 | disposition home or self-care (01) ==
PROVIDERS: Absent Provider Internal Medicine Hematology & Oncology; PCP Nurse Practitioner; Visit Provider Internal Medicine
DX: Z53.9 Procedure and treatment not carried out, unspecified reason (principal); Z87.891 Personal history of nicotine dependence; Z95.828 Presence of other vascular implants and grafts; E53.8 Deficiency of other specified B group vitamins; Z08 Encounter for follow-up examination after completed treatment for malignant neoplasm; Z85.51 Personal history of malignant neoplasm of bladder; Z92.21 Personal history of antineoplastic chemotherapy; Z92.25 Personal history of immunosuppression therapy
CPT/HCPCS: 36591; 71260; 74177; 80053; 82565; 82607; 82728; 82746; 83010; 83540; 83550; 84520; 85025; 85045; 99213

== ENCOUNTER → 2024-07-23 10:09 | Outpatient (BNVA) | payer MEDICARE, OTHER, SELFPAY | PROVIDERS: PCP Nurse Practitioner; Visit Provider Nurse Practitioner | DX: E78.2 Mixed hyperlipidemia (principal) | CPT/HCPCS: 80061 ==

== ENCOUNTER 2024-08-26 10:27 | Oncology outpatient (recurring) (ONCR) | payer MEDICARE, OTHER, SELFPAY | END 2024-09-16 23:59 | disposition home or self-care (01) | PROVIDERS: PCP Nurse Practitioner; Visit Provider Internal Medicine Medical Oncology | DX: Z45.2 Encounter for adjustment and management of vascular access device (principal) | CPT/HCPCS: 96523 ==

== ENCOUNTER 2024-09-10 11:03 | Emergency (ER) | payer MEDICARE, OTHER, SELFPAY ==
[2024-09-10] VITALS (7 sets, daily range): BP systolic 146–148; BP diastolic 70–105; PULSE 68–88; RESP 16–18; TEMP 36.5; O2SAT 94–97; BMI 21.5
--- NOTE | 2024-09-10 11:12 | ECG_ITS ---
[facility] Pat Name: Denia Mast Department: Room: Gender: Female Forensic Anthropologist: : 1945 Requested By: Jaime Berkowitz Order Number: [id number] García MD: Gamal Reynoso M.D. Measurements Intervals [place] Rate: 69 P: 88 DC: 192 QRS: 105 QRSD: 79 T: 105 QT: 363 QTc: 389 Interpretive Statements SINUS RHYTHM RIGHT AXIS DEVIATION [QRS AXIS > 100] SEPTAL MYOCARDIAL INFARCTION , PROBABLY OLD [40+ ms Q WAVE IN V1/V2] Compared to ECG 10/31/2023 08:06:15 Right-axis deviation now present Myocardial infarct finding now present Ventricular premature complex(es) no longer present Electronically Signed On 09-11-2024 12:35:36 CDT by Gamal Reynoso M.D. [email or web address]
--- NOTE | 2024-09-10 11:13 | CT_ITS ---
WS: [id number] CTA OF THE CHEST WITH PULMONARY EMBOLISM PROTOCOL TECHNIQUE: High-resolution contrast enhanced CTA of the chest with coronal and sagittal reformatted images with pulmonary embolism protocol. MIP images are also reviewed. CLINICAL INFORMATION: sob COMPARISON: None. DLP: 197.[address] scans at [facility] use at least one of these dose optimization techniques: automated exposure control; mA and/or kV adjustment per patient size (includes targeted exams where dose is matched to clinical indication); or iterative reconstruction. FINDINGS: Proximal main pulmonary arteries are normal. Normal segmental and subsegmental pulmonary arteries. No evidence of pulmonary embolus. Aortic calcification. Normal caliber thoracic aorta. Normal caliber descending thoracic aorta. Coronary calcification. No mediastinal lymphadenopathy. 8 mm RIGHT hilar hilar lymph node is unchanged. Moderate to large esophageal hiatal hernia is unchanged. Advanced chronic emphysematous changes. Parenchymal scarring in both lungs. No focal pneumonia. Traction bronchiectasis RIGHT hilum. Fibrosis in the lung apices. Few hazy opacities in the LEFT lower lobe may be infectious or inflammatory and appear new since 07/10/2024. RIGHT adrenal nodule is unchanged. Thoracic kyphosis. Chronic anterior wedging of T10 is unchanged. CT/CT angio chest PE protcl [id number] IMPRESSION: 1. No evidence of pulmonary embolus. 2. Severe chronic emphysematous changes. 3. Hazy opacities in the LEFT lower lobe new from 07/10/2024 may be infectious or inflammatory. 4. Moderate to large esophageal hiatal hernia is stable.
--- NOTE | 2024-09-10 11:13 | XR_ITS ---
WS: [id number] Exam: XR chest 1V portable [id number] Date/Time of Exam: 09/10/2024 11:15 AM Reason For Exam: sob Comparison 10/31/2023. Lungs are hyperinflated. New 15 mm soft tissue nodule in the mid RIGHT lung. There is also a questionable new 1 cm soft tissue nodule in the mid LEFT lung. Cardiomediastinal silhouette is unremarkable. No pleural effusion. Small hiatal hernia. LEFT subclavian port ends in the lower one third of the SVC. Bony structures are intact. XR/XR chest 1V portable [id number] IMPRESSION: 1. Pulmonary hyperinflation. No consolidating infiltrates identified. 2. New 15 mm soft tissue nodule in the mid RIGHT lung. Questionable new 1 cm no dule in the mid LEFT lung. Pulmonary metastatic disease might be a consideratio n. Recommendation: Contrast CT scan of the chest could be considered for further w ork-up if thought to be clinically warranted.
[2024-09-10 11:26] LABS: Basophils % 0.2 %; Eosinophils # 0.1 10^3/uL (0.0-0.8); Eosinophils % 0.5 %; Hematocrit 43.6 % (36-47); Lymphocytes # 0.8 10^3/uL (0.8-4.8); Lymphocytes % 8.3 %; Mean Corpuscular Hemoglobin 28.7 pg (27-33); Mean Corpuscular Volume 92.6 fl (85-98); Mean Platelet Volume 9.9 fL (7.4-10.4); Monocytes # 0.4 10^3/uL (0.2-0.9); Neutrophils # 8.24 10^3/uL (1.8-7.7); Neutrophils % 86.7 %; Nucleated Red Blood Cells % 0 %; Platelet Count 291 10^3/cmm (157-399); Red Blood Count 4.71 10^6/uL (3.85-5.65); Red Cell Distribution Width 15.5 % (12.1-15.1); White Blood Count 9.51 10^3/uL (3.29-11.43)
[2024-09-10] MEDS: ipratropium-albuterol 3 mL Neb INHALATION (11:27)
--- NOTE | 2024-09-10 11:33 | W.ED.SOB ---
HPI - SOB/Dyspnea General: Chief Complaint: Shortness of Breath/Dyspnea Stated Complaint: SOB Time Seen by Provider: 09/10/24 11:09 Source: patient Mode of arrival: ambulatory Limitations: no limitations History of Present Illness: HPI Narrative: 79-year-old female states that this morning she take out the trash started having a cough and shortness of breath that she had coughed up a little bit of blood and became concerned. States she still has some slight dyspnea denies any chest pain denies any fevers still had a slight cough. Had a history of cancer in the past. She denies any worse improved factors. Associated symptoms: Reports hemoptysis; Deny abdominal pain, chest pain, fever(s), nausea or vomiting Related Data Home Medications ?Medication ?Instructions ?Recorded ?Confirmed aspirin 81 mg tablet,delayed 81 mg PO DAILY 08/07/19 07/23/24 release (Adult Low Dose Aspirin) cholecalciferol (vitamin D3) 125 5,000 unit PO DAILY 08/07/19 07/23/24 mcg (5,000 unit) capsule acetaminophen 500 mg tablet 500 mg PO Q6H PRN Pain 06/09/23 07/23/24 Held on 10/31/23. Instructions: Resume on 11/03/23. carboxymethylcellulose sodium 1 % 2 drp ophthalmic (eye) BID PRN Dry 06/09/23 07/23/24 eye liquid gel drops Eyes famotidine 20 mg tablet 20 mg PO DAILY 07/23/24 07/23/24 Previous Rx's ?Medication ?Instructions ?Recorded albuterol sulfate 90 mcg/actuation 2 inh inhalation Q4H PRN shortness 12/05/23 aerosol inhaler (Ventolin HFA) of breath or wheezing #18 grams fluticasone fur. 100 mcg-umeclid 1 inh inhalation Q24H #60 ea 07/23/24 62.5 mcg-vilant 25 mcg inhalat.powder (Trelegy Ellipta) metoprolol succinate 25 mg 25 mg PO QPM #90 tabs 07/23/24 tablet,extended release 24 hr rosuvastatin 20 mg tablet 20 mg PO DAILY #90 tabs 07/23/24 valsartan 80 mg tablet (Diovan) 80 mg PO DAILY #90 tabs 07/23/24 doxycycline hyclate 100 mg tablet 100 mg PO BID 7 days #14 tabs 09/10/24 Allergies Allergy/AdvReac Type Severity Reaction Status Date / Time sulfamethoxazole (From AdvReac Intermediate ADR-Abdominal Verified 07/23/24 09:11 Bactrim) Pain trimethoprim (From Bactrim) AdvReac Intermediate ADR-Abdominal Verified 07/23/24 09:11 Pain Review of Systems Const: Denies: fever(s), chills, body aches or change in appetite ENMT: Denies: throat pain or dental pain Card: Denies: chest pain Resp: Reports: dyspnea and hemoptysis GI: Denies: abdominal pain, nausea, vomiting or diarrhea Musc: Denies: neck pain or back pain Skin/Breast: Denies: rash Neuro: Denies: headache(s) PFSH ED PFSH: Medical History Urothelial carcinoma of bladder with invasion of muscle Lesion of urinary bladder Dietary iron deficiency Leaky heart valve seen on echo Essential (primary) hypertension Mixed hyperlipidemia Vitamin B12 deficiency Vitamin D deficiency COPD, moderate Surgical History Port-A-Cath in place Status post hysteroscopic polypectomy 2019 History of tubal ligation 1983 History of oral surgery Gum graft 1998 History of dilation and curettage 1989 Status post cataract surgery 2011 Family History Mother No problems noted. Father Cancer Sister Cancer Other Heart disease Hypertension Social History Smoking and tobacco/nicotine status: former use of tobacco/nicotine Quit status (tobacco/nicotine): has quit using Year quit tobacco: 1997 Former quit date comment: 30+ years tobacco use Second hand smoke exposure: No Alcohol intake: never Substance/Drug Use: never Caregiver/support person: No Lives independently: Yes Household members: spouse Housing: House Marital status: Number of children: 2 Current occupational status: retired Do you think of yourself as: Straight/Heterosexual Current gender identity: Female Physical Exam Const: COMMON NORMALS: no acute distress, patient oriented x3 and healthy appearing HENMT: COMMON NORMALS: normocephalic and atraumatic HEAD & SCALP: normocephalic and atraumatic Eye: COMMON NORMALS: conjunctivae normal CONJUNCTIVA: Yes conjunctivae normal Neck/C-Spine: COMMON NORMALS: full ROM and supple Chest: COMMONS NORMALS: normal inspection of the chest Resp: COMMON NORMALS: normal respiratory effort, No retractions, No use of accessory muscles and clear to auscultation bilaterally AUSCULTATION: clear to auscultation bilaterally Cardio: COMMON NORMALS: regular rate, regular rhythm and No murmurs present (Cardio) RATE: regular rate RHYTHM: regular rhythm GI: COMMON NORMALS: Normal to inspection, nondistended, normoactive bowel sounds present, Soft to palpation, non-tender and no masses PALPATION: Yes Soft to palpation Extremity: COMMON NORMALS: normal to inspection and full ROM Neuro: COMMON NORMALS: patient oriented x3, moves all extremities and no focal motor deficits Psych: COMMON NORMALS: mental status grossly normal, Normal thought process present and cooperative THOUGHT PROCESS: Normal thought process present Skin: COMMON NORMALS: no rashes or lesions noted and no wounds GENERAL SKIN EXAM: no rashes or lesions noted Course Vital Signs: Vital signs: Vital Signs Temperature 97.7 F 09/10/24 11:10 Pulse Rate 88 09/10/24 13:02 Respiratory Rate 16 09/10/24 13:02 Blood Pressure 146/70 09/10/24 13:02 Pulse Oximetry 94 09/10/24 13:02 Oxygen Delivery Me thod Room Air 09/10/24 11:25 MDM - SOB/Dyspnea Medical Decision Making Patient presents here with cough some hemoptysis she had no hemoptysis here CT shows no mass or pulmonary embolism she does have a slight pneumonia she had no hypoxia here we will give her dose of steroid here we will prescribe her doxycycline she is follow-up with PCP she is return if worsening she understands agrees to plan. Medical Records I reviewed the patient's medical records. Lab Data I reviewed the patient's lab results. 09/10/24 11:20 09/10/24 11:20 Labs/Radiology: Radiology Impressions Chest CTA 09/10/24 11:13 IMPRESSION: 1. No evidence of pulmonary embolus. 2. Severe chronic emphysematous changes. 3. Hazy opacities in the LEFT lower lobe new from 07/10/2024 may be infectious or inflammatory. 4. Moderate to large esophageal hiatal hernia is stable. Chest X-Ray 09/10/24 11:13 IMPRESSION: 1. Pulmonary hyperinflation. No consolidating infiltrates identified. 2. New 15 mm soft tissue nodule in the mid RIGHT lung. Questionable new 1 cm nodule in the mid LEFT lung. Pulmonary metastatic disease might be a consideration. Recommendation: Contrast CT scan of the chest could be considered for further work-up if thought to be clinically warranted. Laboratory Results WBC 9.51 10^3/uL (3.29-11.43) 09/10/24 11:20 RBC 4.71 10^6/uL (3.85-5.65) 09/10/24 11:20 Hgb 13.50 g/dL (11.27-16.99) 09/10/24 11:20 Hct 43.6 % (36-47) 09/10/24 11:20 MCV 92.6 fl (85-98) 09/10/24 11:20 MCH 28.7 pg (27-33) 09/10/24 11:20 MCHC 31.0 g/dL (30-55) 09/10/24 11:20 RDW 15.5 % (12.1-15.1) H 09/10/24 11:20 Plt Count 291 10^3/cmm (157-399) 09/10/24 11:20 MPV 9.9 fL (7.4-10.4) 09/10/24 11:20 Neut % (Auto) 86.7 % 09/10/24 11:20 Lymph % (Auto) 8.3 % 09/10/24 11:20 Bland % (Auto) 4.0 % 09/10/24 11:20 Eos % (Auto) 0.5 % 09/10/24 11:20 Baso % (Auto) 0.2 % 09/10/24 11:20 Neut # (Auto) 8.24 10^3/uL (1.8-7.7) H 09/10/24 11:20 Lymph # (Auto) 0.8 10^3/uL (0.8-4.8) 09/10/24 11:20 Bland # (Auto) 0.4 10^3/uL (0.2-0.9) 09/10/24 11:20 Eos # (Auto) 0.1 10^3/uL (0.0-0.8) 09/10/24 11:20 Baso # (Auto) 0.0 10^3/uL (0.0-0.1) 09/10/24 11:20 Nucleated RBC % (auto) 0 % 09/10/24 11:20 Nucleated RBCs # 0.0 /100WBC 09/10/24 11:20 PT 13.20 SECONDS (12.1-14.9) 09/10/24 11:20 INR 0.94 (0.8-1.2) 09/10/24 11:20 Sodium 137 mmol/L (136-145) 09/10/24 11:20 Potassium 4.9 mmol/L (3.5-5.1) 09/10/24 11:20 Chloride 104 mmol/L (98-107) 09/10/24 11:20 Carbon Dioxide 23 mmol/L (22-29) 09/10/24 11:20 Anion Gap 14.9 (5-19) 09/10/24 11:20 BUN 25 mg/dL (8-23) H 09/10/24 11:20 Creatinine 0.9 mg/dL (0.5-0.9) 09/10/24 11:20 GFR Calculation Not Reportable 09/10/24 11:20 Glucose 100 mg/dL (65-115) 09/10/24 11:20 Calculated Osmolality 288 mOsm/kg (285-295) 09/10/24 11:20 Calcium 9.5 mg/dL (8.5-10.5) 09/10/24 11:20 Total Bilirubin 0.3 mg/dL (0.15-1.2) 09/10/24 11:20 AST 16 U/L (0-32) 09/10/24 11:20 ALT 10 U/L (0-33) 09/10/24 11:20 Alkaline Phosphatase 98 U/L (35-105) 09/10/24 11:20 Total Protein 8.1 g/dL (6.6-8.7) 09/10/24 11:20 Albumin 4.0 g/dL (3.5-5.2) 09/10/24 11:20 Globulin 4.1 g/dL (1.3-4.6) 09/10/24 11:20 Influenza A (PCR) Negative (Negative) 09/10/24 11:39 Influenza Type B (PCR) Negative (Negative) 09/10/24 11:39 RSV (PCR) Negative (Negative) 09/10/24 11:39 SARS-CoV-2 (PCR) Negative (Negative) 09/10/24 11:39 All radiology interpretation(s) finalized by discharge EKG Data EKG 1: I personally reviewed and interpreted this EKG as follows: EKG Interpretation Date: 09/10/24 EKG interpretation time: 11:26 Interpretation: nsr hr [address] or t wave abnormalities qrs 79 qtc 382 Discharge Plan Discharge Patient Disposition: Home Clinical Impression: Pneumonia Condition: Stable Prescriptions: New doxycycline hyclate 100 mg tablet 100 mg PO BID 7 Days Qty: 14 0RF No Action aspirin [Adult Low Dose Aspirin] 81 mg tablet,delayed release (DR/EC) 81 mg PO DAILY cholecalciferol (vitamin D3) 125 mcg (5,000 unit) capsule 5,000 unit PO DAILY famotidine 20 mg tablet 20 mg PO DAILY valsartan [Diovan] 80 mg tablet 80 mg PO DAILY Qty: 90 1RF Trelegy Ellipta 100-62.5-25 mcg blister with device 1 inh INHALATION Q24H Qty: 60 2RF metoprolol succinate 25 mg tablet extended release 24 hr 25 mg PO QPM Qty: 90 0RF rosuvastatin 20 mg tablet 20 mg PO DAILY Qty: 90 0RF albuterol sulfate [Ventolin HFA] 90 mcg/actuation HFA aerosol inhaler 2 inh INHALATION Q4H PRN (Reason: shortness of breath or wheezing) Qty: 18 5RF acetaminophen 500 mg Tablet 500 mg PO Q6H PRN (Reason: Pain) carboxymethylcellulose sodium 1 % Drops, Liquid Gel 2 drp OPHTHALMIC (EYE) BID PRN (Reason: Dry Eyes) Discharge Orders: Discharge ED (Routine); Ordered 09/10/24 Ordered By: Jaime Berkowitz Referrals: Sandy Mckeon, [facility] [Primary Care Provider] - 4-7 days Discharge Diet: Advance as tolerated Discharge Activity: Resume usual activity Patient Instructions: Community Acquired Pneumonia (ED) Print Language: Armenian Coding Level of Care Code ED Cartoon Artist for Zoë Dalton
[2024-09-10 11:40] LABS: INR 0.94 (0.8-1.2)
[2024-09-10 11:45] LABS: Alanine Aminotransferase 10 U/L (0-33); Alkaline Phosphatase 98 U/L (35-105); Anion Gap 14.9 (5-19); Aspartate Amino Transferase 16 U/L (0-32); Blood Urea Nitrogen 25 mg/dL (8-23); Calcium 9.5 mg/dL (8.5-10.5); Carbon Dioxide 23 mmol/L (22-29); Chloride 104 mmol/L (98-107); Creatinine Clr Calc Pharmacy 40.5085; Globulin 4.1 g/dL (1.3-4.6); Glucose 100 mg/dL (65-115); Osmolality Calculated 288 mOsm/kg (285-295); Potassium 4.9 mmol/L (3.5-5.1); Sodium 137 mmol/L (136-145); Total Bilirubin 0.3 mg/dL (0.15-1.2); Total Protein 8.1 g/dL (6.6-8.7)
[2024-09-10] MEDS: iohexol 350 mg/mL 500 mL Btl (per mL) IV (12:12)
[2024-09-10 12:25] LABS: Influenza A NEGATIVE (Negative); Influenza B NEGATIVE (Negative); Respiratory Syncytial Virus Ce NEGATIVE (Negative); SARS-CoV-2 PCR NEGATIVE (Negative)
[2024-09-10] MEDS: doxycycline 100 mg Tablet PO (13:16)
[2024-09-10] MEDS: dexamethasone 10 mg/mL INJ IVP (13:16)
== END 2024-09-10 13:24 | disposition home or self-care (01) ==
PROVIDERS: Emergency Provider Emergency Medicine; PCP Nurse Practitioner
DX: J18.9 Pneumonia, unspecified organism (principal); Z11.52 Encounter for screening for COVID-19; Z87.891 Personal history of nicotine dependence; J44.9 Chronic obstructive pulmonary disease, unspecified; E78.2 Mixed hyperlipidemia
CPT/HCPCS: 71045; 71275; 80053; 85025; 85610; 87637; 93005; 94640; 96374; 99285; J1100; J9999

== ENCOUNTER 2024-10-09 10:30 | Oncology outpatient (recurring) (ONCR) | payer MEDICARE, OTHER, SELFPAY ==
[2024-10-07] MEDS: iohexol 350 mg/mL 500 mL Btl (per mL) IV (11:58)
[2024-10-07] MEDS: iohexol 350 mg/mL 500 mL Btl (per mL) PO (11:58)
--- NOTE | 2024-10-07 12:00 | CTR_ITS ---
PROCEDURE INFORMATION: Exam: CT Chest With Contrast; Diagnostic Exam date and time: 10/07/2024 11:49 AM Age: 79 years old Clinical indication: Condition or disease; Other: Bladder cancer; Prior surgery; Surgery date: 6+ months; Surgery type: Port, tubal; Additional info: Compare to previous TECHNIQUE: Imaging protocol: Diagnostic computed tomography of the chest with contrast. Radiation optimization: All CT scans at this facility use at least one of these dose optimization techniques: automated exposure control; mA and/or kV adjustment per patient size (includes targeted exams where dose is matched to clinical indication); or iterative reconstruction. Contrast material: OMNI 350; Contrast volume: 100 ml; Contrast route: INTRAVENOUS (IV); COMPARISON: CT angio chest PE protcl [id number] 09/10/2024 12:00 PM RADIATION DOSE METRICS: Total DLP (mGy-cm): 492.73 FINDINGS: Tubes, catheters and devices: A left subclavian Port-A-Cath is in place with its tip in the distal superior vena cava. Lungs: There are emphysematous changes with unchanged scarring within the posterior right upper lobe with bronchiectatic changes again noted. There is also stable scarring within the left lung apex and right middle lobe. There has been interval improvement in previously noted ground-glass opacities within the left lower lobe with minimal residual subpleural ground-glass opacities noted. No new infiltrates or nodules. Pleural spaces: Unremarkable. No pneumothorax. No pleural effusion. Heart: Unremarkable. No cardiomegaly. No pericardial effusion. Lymph nodes: Unremarkable. No enlarged lymph nodes. Vasculature: Unremarkable. No aortic aneurysm. Diaphragm: A moderate hiatal hernia is noted. Bones/joints: There is a chronic compression deformity of the T10 vertebral body again noted. No acute fractures. No suspicious osseous lesions. There is diffuse osteopenia. Soft tissues: Unremarkable. PROCEDURE INFORMATION: Exam: CT Abdomen And Pelvis With Contrast Exam date and time: 10/07/2024 11:49 AM Age: 79 years old Clinical indication: Condition or disease; Other: Bladder cancer; Prior surgery; Surgery date: 6+ months; Surgery type: Port, tubal; Additional info: Compare to previous TECHNIQUE: Imaging protocol: Computed tomography of the abdomen and pelvis with contrast. Radiation optimization: All CT scans at this facility use at least one of these dose optimization techniques: automated exposure control; mA and/or kV adjustment per patient size (includes targeted exams where dose is matched to clinical indication); or iterative reconstruction. Contrast material: OMNI 350; Contrast volume: 100 ml; Contrast route: INTRAVENOUS (IV); COMPARISON: CT chest abdpel w/*[id number] 07/10/2024 2:02 PM RADIATION DOSE METRICS: Total DLP (mGy-cm): 492.73 FINDINGS: Liver: There is a stable low-density lesion within the liver, suggestive of a hepatic cyst. No new liver lesions. Gallbladder and biliary ducts: Normal. No calcified stones. No ductal dilation. Pancreas: Normal. No ductal dilation. Spleen: Normal. No splenomegaly. Adrenal glands: There is a 3.4 x 2.4 cm right adrenal lesion which is not significantly changed. The left adrenal gland is within normal limits. Kidneys and ureters: There are simple bilateral renal cysts noted. No hydronephrosis. Stomach and bowel: There is colonic diverticulosis without acute diverticulitis. Moderate retained fecal material is noted within the colon. Appendix: No evidence of appendicitis. Intraperitoneal space: Unremarkable. No free air. No significant fluid collection. Vasculature: Unremarkable. No abdominal aortic aneurysm. Lymph nodes: No pathologically enlarged lymph nodes are noted. Urinary bladder: The bladder is incompletely distended and not well evaluated. Reproductive: Unremarkable as visualized. Bones/joints: Unremarkable. No acute fracture. Soft tissues: Unremarkable. CT[facility]/*[id number] IMPRESSION: 1. Emphysematous changes and scarring with interval improvement in left lower lobe opacities which are nearly completely resolved. 2. No new pulmonary nodules or infiltrates 3. Moderate hiatal hernia. IMPRESSION: 1. Stable right adrenal lesion 2. No evidence of significant abdominal or pelvic lymphadenopathy 3. Additional nonemergent findings, as described above COMMENTS: Consistent with the [employer]'s Incidental Findings Committee white paper (J Am Mabel Radiol 2018): Any incidental renal lesion less than 1 cm or classified as too small to characterize, or any incidental cystic renal lesion characterized as simple-appearing, is likely benign. No follow-up imaging is recommended for these lesions per consensus recommendations based on imaging criteria.
[2024-10-09 10:37] LABS: Basophils % 0.2 %; Eosinophils # 0.2 10^3/uL (0.0-0.8); Eosinophils % 1.9 %; Hematocrit 40.6 % (36-47); Lymphocytes # 0.9 10^3/uL (0.8-4.8); Lymphocytes % 10.5 %; Mean Corpuscular HGB Conc 31.3 g/dL (30-55); Mean Corpuscular Hemoglobin 29.1 pg (27-33); Mean Corpuscular Volume 93.1 fl (85-98); Mean Platelet Volume 9.9 fL (7.4-10.4); Monocytes # 0.6 10^3/uL (0.2-0.9); Monocytes % 6.8 %; Neutrophils # 6.82 10^3/uL (1.8-7.7); Neutrophils % 80.1 %; Nucleated Red Blood Cells % 0 %; Platelet Count 311 10^3/cmm (157-399); Red Blood Count 4.36 10^6/uL (3.85-5.65); Red Cell Distribution Width 15.4 % (12.1-15.1); White Blood Count 8.51 10^3/uL (3.29-11.43)
[2024-10-09 10:58] LABS: Alanine Aminotransferase 10 U/L (0-33); Albumin Level 3.8 g/dL (3.5-5.2); Alkaline Phosphatase 93 U/L (35-105); Anion Gap 16.6 (5-19); Aspartate Amino Transferase 14 U/L (0-32); Blood Urea Nitrogen 18 mg/dL (8-23); Calcium 9.2 mg/dL (8.5-10.5); Carbon Dioxide 22 mmol/L (22-29); Chloride 106 mmol/L (98-107); Ferritin 22 ng/mL (15-150); Globulin 3.4 g/dL (1.3-4.6); Glucose 93 mg/dL (65-115); Homocysteine 15.26 umol/l (0-15); Iron 55 ug/dL (37-145); Lactate Dehydrogenase 200 U/L (135-214); Osmolality Calculated 292 mOsm/kg (285-295); Percent Saturation 15.6 % (20-50); Potassium 4.6 mmol/L (3.5-5.1); Sodium 140 mmol/L (136-145); Total Bilirubin 0.4 mg/dL (0.15-1.2); Total Iron Binding Capacity 352 mcg/dl; Total Protein 7.2 g/dL (6.6-8.7); Unsaturated Iron Binding 297 ug/dL (112-347)
[2024-10-09 11:13] LABS: Vitamin B12 355 pg/mL (232-1245)
[2024-10-13 05:10] LABS: Methylmalonic Acid 160 nmol/L (85-423)
== END 2024-10-16 23:59 | disposition home or self-care (01) ==
PROVIDERS: PCP Nurse Practitioner; Visit Provider Internal Medicine
DX: Z53.9 Procedure and treatment not carried out, unspecified reason (principal); Z08 Encounter for follow-up examination after completed treatment for malignant neoplasm; Z85.51 Personal history of malignant neoplasm of bladder; E61.1 Iron deficiency; E53.8 Deficiency of other specified B group vitamins; Z95.828 Presence of other vascular implants and grafts; Z87.891 Personal history of nicotine dependence; Z92.21 Personal history of antineoplastic chemotherapy; Z92.25 Personal history of immunosuppression therapy
CPT/HCPCS: 36591; 71260; 74177; 80053; 82607; 82728; 82746; 83010; 83090; 83540; 83550; 83615; 83921; 85025; 85045; 99213

== ENCOUNTER 2024-11-20 13:31 | Oncology outpatient (recurring) (ONCR) | payer MEDICARE, OTHER, SELFPAY | END 2024-12-16 23:59 | disposition home or self-care (01) | PROVIDERS: PCP Nurse Practitioner; Visit Provider Internal Medicine | DX: Z45.2 Encounter for adjustment and management of vascular access device (principal); Z95.828 Presence of other vascular implants and grafts | CPT/HCPCS: 96523 ==

== ENCOUNTER 2025-01-01 13:27 | Oncology outpatient (recurring) (ONCR) | payer MEDICARE, OTHER, SELFPAY | END 2025-01-16 23:59 | disposition home or self-care (01) | LOC: ONCMED 13:28 | PROVIDERS: PCP Nurse Practitioner; Visit Provider Internal Medicine | DX: Z45.2 Encounter for adjustment and management of vascular access device (principal); Z95.828 Presence of other vascular implants and grafts | CPT/HCPCS: 96523 ==

== ENCOUNTER 2025-02-12 13:15 | Oncology outpatient (recurring) (ONCR) | payer MEDICARE, OTHER, SELFPAY ==
--- NOTE | 2025-02-03 12:30 | CTR_ITS ---
PROCEDURE INFORMATION: Exam: CT Chest With Contrast; Diagnostic Exam date and time: 02/03/2025 12:21 PM Age: 79 years old Clinical indication: Condition or disease; Other: Bladder cancer; Primary cancer: Urothelial carcinoma of bladder w/invasion, prior surgery; Surgery date: 6+ months; Surgery type: Port, tubal, TECHNIQUE: Imaging protocol: Diagnostic computed tomography of the chest with contrast. Radiation optimization: All CT scans at this facility use at least one of these dose optimization techniques: automated exposure control; mA and/or kV adjustment per patient size (includes targeted exams where dose is matched to clinical indication); or iterative reconstruction. Contrast material: OMNI 350; Contrast volume: 100 ml; Contrast route: INTRAVENOUS (IV); COMPARISON: 1. CT chest abdpel w/*[id number] 10/07/2024 11:[address] chest abdpel w/*[id number] 07/10/2024 2:02 PM RADIATION DOSE METRICS: Total DLP (mGy-cm): 506.91 FINDINGS: Lungs: Unchanged 16 mm nodular opacity medially in the left upper lobe, abutting the pleural surface. New 9 mm spiculated opacity anteriorly in the left upper lobe, abutting the pleural surface (image 10 of series 7). Small regions of nodular interstitial thickening and bronchiectasis in the right upper lobe and lingula are unchanged. Moderate, diffuse bullous disease again noted. Pleural spaces: Unremarkable. No pneumothorax. No pleural effusion. Heart: Unremarkable. No cardiomegaly. No pericardial effusion. Lymph nodes: No lymph node enlargement. Vasculature: Unremarkable. No aortic aneurysm. Diaphragm: Unchanged 6 cm hiatal hernia. Bones/joints: Unchanged T10 compression fracture. No suspicious osseous lesions. Soft tissues: Unremarkable. PROCEDURE INFORMATION: Exam: CT Abdomen And Pelvis With Contrast Exam date and time: 02/03/2025 12:21 PM Age: 79 years old Clinical indication: Condition or disease; Other: Bladder cancer; Primary cancer: Urothelial carcinoma of bladder w/invasion, prior surgery; Surgery date: 6+ months; Surgery type: Port, tubal, TECHNIQUE: Imaging protocol: Computed tomography of the abdomen and pelvis with contrast. Radiation optimization: All CT scans at this facility use at least one of these dose optimization techniques: automated exposure control; mA and/or kV adjustment per patient size (includes targeted exams where dose is matched to clinical indication); or iterative reconstruction. Contrast material: OMNI 350; Contrast volume: 100 ml; Contrast route: INTRAVENOUS (IV); COMPARISON: CT chest abdpel w/*[id number] 07/10/2024 2:02 PM RADIATION DOSE METRICS: Total DLP (mGy-cm): 506.91 FINDINGS: Liver: Unchanged focal fatty infiltration medial segment of the left lobe of the liver. Unchanged subcentimeter right lobe hypodensity, likely a cyst. Gallbladder and biliary ducts: The gallbladder is normal. There is no evidence of biliary ductal dilation. Pancreas: The pancreas is normal. No mass. Spleen: The spleen is normal. Adrenal glands: Unchanged 3.5 cm right adrenal mass. No left adrenal mass. Kidneys and ureters: Unchanged calcifications in the right renal sinus, measuring up to 9 mm . Unchanged bilateral renal cysts. No hydronephrosis. Stomach and bowel: No evidence of bowel obstruction. No pericolonic inflammatory stranding. Appendix: Normal appendix. Intraperitoneal space: Unremarkable. No free air. No significant fluid collection. Vasculature: Aortic caliber is normal. Lymph nodes: A left pelvic sidewall lymph node measures 11 mm, previously 6 mm. No other lymph node enlargement. Urinary bladder: Bladder is incompletely distended. Mild bladder wall thickening is present diffusely. Reproductive: Uterus is unremarkable. No suspicious adnexal lesion seen. Bones/joints: A 2 cm focus small sclerotic densities have developed inferolaterally in the right sacral ala. No other new osseous lesions. Soft tissues: Unremarkable. CT/CT chest abdpel w/*[id number] IMPRESSION: 1. New 9 mm peripheral left upper lobe nodule suspicious for new metastatic disease. 2. No other interval changes. Chronic bronchiectasis, interstitial thickening and emphysematous changes persist. IMPRESSION: 1. Mild bladder wall thickening , which should be clinically assessed for recurrent or residual bladder neoplasm. 2. Interval enlargement of a single left pelvic sidewall lymph node suspicious for metastatic disease. 3. New sclerotic foci in the right sacrum which could represent metastatic disease. 4. Unchanged 3.5 cm right adrenal mass.
[2025-02-03 12:31] LABS: Blood Urea Nitrogen 23 mg/dL (8-23)
[2025-02-12 13:18] LABS: Hematocrit 41.7 % (36-47); Hemoglobin 13.40 g/dL (11.27-16.99); Mean Corpuscular HGB Conc 32.1 g/dL (30-55); Mean Corpuscular Hemoglobin 29.8 pg (27-33); Mean Corpuscular Volume 92.9 fl (85-98); Nucleated Red Blood Cells % 0 %; Platelet Count 284 10^3/cmm (157-399); Red Blood Count 4.49 10^6/uL (3.85-5.65); White Blood Count 8.06 10^3/uL (3.29-11.43)
[2025-02-12 14:45] LABS: Alanine Aminotransferase 12 U/L (0-33); Albumin Level 4.0 g/dL (3.5-5.2); Alkaline Phosphatase 89 U/L (35-105); Anion Gap 11.9 (5-19); Aspartate Amino Transferase 18 U/L (0-32); Blood Urea Nitrogen 23 mg/dL (8-23); Calcium 9.2 mg/dL (8.5-10.5); Carbon Dioxide 26 mmol/L (22-29); Chloride 106 mmol/L (98-107); Cholesterol 155 mg/dL (0-200); Creatinine Clr Calc Pharmacy 40.7940; Globulin 3.0 g/dL (1.3-4.6); Glucose 88 mg/dL (65-115); HDL Cholesterol 55 mg/dL (60-100); Osmolality Calculated 291 mOsm/kg (285-295); Potassium 4.9 mmol/L (3.5-5.1); Sodium 139 mmol/L (136-145); Total Protein 7.0 g/dL (6.6-8.7); Triglycerides 177 mg/dL (0-150); VLDL Cholestrol Calculation 35 mg/dL (0-30)
== END 2025-02-16 23:59 | disposition home or self-care (01) ==
PROVIDERS: PCP Nurse Practitioner; Visit Provider Internal Medicine
DX: Z53.9 Procedure and treatment not carried out, unspecified reason (principal); C67.9 Malignant neoplasm of bladder, unspecified; C79.89 Secondary malignant neoplasm of other specified sites; E55.9 Vitamin D deficiency, unspecified; I10 Essential (primary) hypertension; E78.2 Mixed hyperlipidemia; E53.8 Deficiency of other specified B group vitamins; Z87.891 Personal history of nicotine dependence; R91.1 Solitary pulmonary nodule; N28.89 Other specified disorders of kidney and ureter
CPT/HCPCS: 36591; 71260; 74177; 80053; 80061; 82306; 82565; 84520; 85025; 99213

== ENCOUNTER 2025-03-26 11:11 | Oncology outpatient (recurring) (ONCR) | payer MEDICARE, OTHER, SELFPAY | END 2025-04-18 23:59 | disposition home or self-care (01) | PROVIDERS: PCP Nurse Practitioner; Visit Provider Internal Medicine | DX: Z53.9 Procedure and treatment not carried out, unspecified reason; Z45.2 Encounter for adjustment and management of vascular access device; Z95.828 Presence of other vascular implants and grafts | CPT/HCPCS: 96523 ==

== ENCOUNTER 2025-05-14 14:00 | Oncology outpatient (recurring) (ONCR) | payer MEDICARE, OTHER, SELFPAY ==
--- NOTE | 2025-04-25 09:00 | PETR_ITS ---
PROCEDURE INFORMATION: Exam: PET/CT Skull Base to Mid-thigh Exam date and time: 04/25/2025 9:32 AM Age: 79 years old Clinical indication: Condition or disease; Primary cancer: Carcinoma of the bladder; Additional info: Restage/urothelial carcinoma of bladder, Dr. Yoo would like this 04/25 LABS AND CLINICAL REPORTS: Glucose: 91 mg/dl Treatment strategy for malignancy (PET staging): Restaging (PS) TECHNIQUE: Imaging protocol: Following at least four-hour fasting and following the injection of radiopharmaceutical, low dose CT images were obtained. Then, PET images were obtained. Attenuation corrected images were constructed using the CT scan. Fused images of PET and CT were reviewed. The standardized uptake values (SUV) reported below are maximum values within a region of interest, expressed in gm/ml. Exam includes orbital meatal line to mid-thigh. SUV normalization method: BodyWeight Radiopharmaceutical: 10.8 mCi F-18 FDG (Fluorodeoxyglucose), IV. Time of imaging post radiopharmaceutical administration: 47 minutes Injection site: R AC COMPARISON: 1. PT PET skull to thigh INIT [id number] 09/26/2023 12:[address] chest abdpel w/*[id number] 02/03/2025 12:21 PM FINDINGS: Tubes, catheters and devices: Left chest port terminates at the SVC. Brain: Visualized brain has normal physiologic uptake. Teeth: Couple anterior mandibular periapical lucencies with associated FDG uptake compatible with inflammatory dental disease. Pharynx: No abnormal uptake. Larynx: No abnormal uptake. Lungs, pleura and trachea: Pulmonary emphysema. Anterior left upper lobe spiculated nodule of concern on recent comparison chest CT has significantly decreased with small residual area of non FDG-avid reticulation on axial image 67. Developed irregular FDG avid 6 mm peripheral subpleural lingular nodule on axial image 107 with SUV max 9.2. Heart: Normal physiologic uptake. Coronary arteries: Moderate coronary artery calcification. Mediastinal space: No abnormal uptake. Diaphragm: Moderate hiatal hernia. Liver: No abnormal uptake. Gallbladder and biliary ducts: No abnormal uptake. Pancreas: No abnormal uptake. Spleen: No abnormal uptake. Adrenal glands: No abnormal uptake. Redemonstrated hypodense right adrenal nodule compatible with adenoma. Kidneys and ureters: Normal physiologic uptake. Couple right renal cysts. Stomach and bowel: No abnormal uptake. Colonic diverticulosis without findings of diverticulitis. Urinary bladder: Urinary bladder shows unremarkable CT appearance without focal wall thickening. Evaluation of FDG uptake is limited by FDG avid urine. Vasculature: No abnormal uptake. Moderate systemic atherosclerotic calcification without aortic aneurysm. Lymph nodes: Resolved FDG avid enlarged mediastinal lymphadenopathy. Mildly decreased size subcentimeter left lower para-aortic lymph node with mildly increased uptake showing SUV max 4.0 on axial image 171, previously 3.5. Previous left pelvic lymph node shows stable size with increased FDG uptake, measuring 1.2 cm in the short axis on axial image 201 with SUV max 12.8. Developed FDG avidity at multiple smaller left iliac chain lymph nodes with index common iliac node measuring 8 mm in the short axis on axial image 180 with SUV max 12.0. Skeleton: No abnormal uptake in the visualized axial and appendicular skeleton. Degenerative change along the imaged axial skeletal system and stable moderate compression deformity of the T10 vertebral body. Soft tissues: Bilateral shoulder periarticular uptake without underlying CT abnormality is likely inflammatory. METRICS: Mediastinal blood pool: SUV mean 2.3 Liver uptake: SUV mean 2.6 PET/PET skull to thigh SUBS [id number] IMPRESSION: 1. Compared to 09/26/2023, mixed treatment response with resolved FDG avid mediastinal lymphadenopathy and decreased left lower para-aortic lymphadenopathy but worsened left iliac chain/pelvic lymphadenopathy. 2. Anterior left upper lobe spiculated nodule of concern on recent comparison chest CT has significantly decreased with small residual area of non FDG avid reticulation. 3. Intervally developed FDG avid 6 mm subpleural lingular nodule could be inflammatory or metastatic. Follow-up chest CT recommended. 4. Additional chronic and incidental findings as above.
[2025-05-14 13:57] LABS: Hematocrit 44.4 % (36-47); Hemoglobin 14.40 g/dL (11.27-16.99); Mean Corpuscular HGB Conc 32.4 g/dL (30-55); Mean Corpuscular Hemoglobin 30.1 pg (27-33); Mean Corpuscular Volume 92.7 fl (85-98); Nucleated Red Blood Cells % 0 %; Platelet Count 270 10^3/cmm (157-399); Red Blood Count 4.79 10^6/uL (3.85-5.65); White Blood Count 7.77 10^3/uL (3.29-11.43)
[2025-05-14 14:16] LABS: Alanine Aminotransferase 10 U/L (0-33); Albumin Level 4.2 g/dL (3.5-5.2); Alkaline Phosphatase 88 U/L (35-105); Anion Gap 14.6 (5-19); Aspartate Amino Transferase 19 U/L (0-32); Blood Urea Nitrogen 21 mg/dL (8-23); Calcium 9.4 mg/dL (8.5-10.5); Carbon Dioxide 24 mmol/L (22-29); Chloride 106 mmol/L (98-107); Globulin 3.2 g/dL (1.3-4.6); Glucose 99 mg/dL (65-115); Osmolality Calculated 293 mOsm/kg (285-295); Potassium 4.6 mmol/L (3.5-5.1); Sodium 140 mmol/L (136-145); Total Protein 7.4 g/dL (6.6-8.7)
== END 2025-05-18 23:59 | disposition home or self-care (01) ==
PROVIDERS: PCP Nurse Practitioner; Visit Provider Internal Medicine
DX: Z53.9 Procedure and treatment not carried out, unspecified reason; C67.2 Malignant neoplasm of lateral wall of bladder; D64.9 Anemia, unspecified; E53.8 Deficiency of other specified B group vitamins; Z87.891 Personal history of nicotine dependence; Z95.828 Presence of other vascular implants and grafts; E61.1 Iron deficiency
CPT/HCPCS: 36591; 78815; 80053; 85025; 99213; A9552